=== PATIENT | male | born 1945 | race African-American/Black ===

== ENCOUNTER 2022-06-10 17:29 | Emergency (ER) | payer OTHER ==
[~2022-06-10] VITALS: Ht 175.3 cm; Wt 117.9 kg
--- NOTE | 2022-06-10 17:34 | NUR ---
ER at bedside examining patient.
[2022-06-10 17:37] VITALS: BP_SYST 123
[2022-06-10] MEDS ORDERED: MECLIZINE HCL 25 MG TABLET (ANITVERT) PO ONE (17:45)
[2022-06-10] MEDS ORDERED: METOCLOPRAMIDE HCL 10 MG/2 ML VIAL IVP ONE (17:45)
[2022-06-10 18:29] LABS: ANION GAP 3 (5-15); CALCIUM 8.2 mg/dL (8.4-11.0); CHLORIDE 94 mmol/L (98-107); CREATININE 1.08 mg/dL (0.55-1.30); GLUCOSE 58 mg/dL (70-99); UREA NITROGEN, BLOOD 12 mg/dL (8-21)
[2022-06-10 18:37] LABS: ALANINE AMINOTRANSFERASE 18 U/L (12-78); ALBUMIN 2.6 g/dL (3.4-4.8); ASPARTATE AMINOTRANSFERASE 34 U/L (10-37); TOTAL BILIRUBIN 0.3 mg/dL (0.0-1.0)
[2022-06-10 18:43] LABS: HEMATOCRIT 31.7 % (36-54); HEMOGLOBIN 10.7 g/dL (14.0-18.0); MEAN CORPUSCULAR HEMOGLOBIN 28 pg (27-31); MEAN CORPUSCULAR HGB CONC 34 % (32-36); MEAN CORPUSCULAR VOLUME 81 fL (79.0-98.0); PLATELET COUNT (AUTO) 225 K/uL (130-430); RED BLOOD CELL COUNT(AUTO) 3.91 MIL/uL (4.2-6.2); RED CELL DISTRIBUTION WIDTH 19.3 % (9.0-15.0); WHITE BLOOD COUNT (AUTO) 5.2 K/uL (4.8-10.8)
[2022-06-10 19:09] LABS: BAND % (MANUAL) 0 % (0-6); BASOPHILS % (MANUAL) 0 % (0-2); EOSINOPHILS % (MANUAL) 34 % (0-7); LYMPHOCYTES % (MANUAL) 29 % (20-46); MONOCYTES % (MANUAL) 6 % (0-11)
[2022-06-10] MEDS ORDERED: DEXTROSE 50% JECT 50 ML DISP.SYRIN IVP ONE (20:30)
[2022-06-11 01:06] VITALS: BP_SYST 108
--- NOTE | 2022-06-11 01:16 | NUR ---
called to give report to rachel Mauricio, pt will be going to room 4034 and not [id number] per oswaldo. [facility] here waiting for [facility] to transfer pt. pt a&ox4 bedbound. iv access left in place. no distress noted. report given to emt transporter.
== END 2022-06-11 02:08 | disposition short-term general hospital (02) ==
LOC: SED 17:29
DX: E16.2 Hypoglycemia, unspecified (principal); R42 Dizziness and giddiness; R11.2 Nausea with vomiting, unspecified; R51.9 Headache, unspecified; Z79.899 Other long term (current) drug therapy; Z20.822 Contact with and (suspected) exposure to COVID-19
CPT/HCPCS: 99285; 96374; 70450; 71045; 96375; 87426; 85027; 80053; 82962; 85007; 84484; 36415; 93005; 76376; J8597; J2765

== ENCOUNTER 2022-08-02 14:14 | Inpatient (IN) | payer OTHER ==
[~2022-08-02] VITALS: Ht 172.7 cm; Wt 127.2 kg
--- NOTE | 2022-08-02 00:07 | NUR ---
ADMISSION: The patient, QUEENIE GONZALEZ, 77 y/o, M admitted by JUNAID CHAVEZ MD, was given written information regarding hospital policies, unit procedures and contact persons. Valuables were checked and DOCUMENTED. Addendum: 08/03/22 at 0700 by [facility], RIANNA BLANCA NOTE INTENDED FOR DIFFERENT DATE
[2022-08-02 14:25] VITALS: BP_SYST 110
--- NOTE | 2022-08-02 14:25 | NUR ---
BROUGHT IN BY [facility] AND PLACED IN HALLWAY, AWAITING ER BED AVAILABILITY
--- NOTE | 2022-08-02 14:26 | NUR ---
PT IS A RESIDENT OF [facility]
--- NOTE | 2022-08-02 15:25 | NUR ---
Patient to ER bed 04 to gown for evaluation. Side rails up.
--- NOTE | 2022-08-02 15:59 | NUR ---
Pt brought by ambulance,A&Ox4, pt presents to ER with N/V, denies abdominal pain, skin pink and warm, cap refill <3, VSS, will cont to monitor
[2022-08-02] MEDS ORDERED: ONDANSETRON 4 MG ODT TAB PO ONE (16:00)
[2022-08-02 16:44] LABS: ANION GAP 6 (5-15); CALCIUM 7.6 mg/dL (8.4-11.0); CHLORIDE 107 mmol/L (98-107); CREATININE 2.46 mg/dL (0.55-1.30); GLUCOSE 86 mg/dL (70-99); UREA NITROGEN, BLOOD 39 mg/dL (8-21)
[2022-08-02 16:48] LABS: BASOPHILS % (AUTO) 0.2 % (0.0-2.0); EOSINOPHILS % (AUTO) 0.1 % (0.0-4.0); HEMATOCRIT 38.4 % (36-54); HEMOGLOBIN 12.3 g/dL (14.0-18.0); LYMPHOCYTES # (AUTO) 2.1 K/uL (1.0-5.5); LYMPHOCYTES % (AUTO) 12.7 % (20.5-51.5); MEAN CORPUSCULAR HEMOGLOBIN 27 pg (27-31); MEAN CORPUSCULAR HGB CONC 32 % (32-36); MEAN CORPUSCULAR VOLUME 84 fL (79.0-98.0); MONOCYTES # (AUTO) 1.7 K/uL (0.0-1.0); MONOCYTES % (AUTO) 10.4 % (1.7-9.3); NEUTROPHILS # (AUTO) 12.4 K/uL (1.8-7.7); NEUTROPHILS % (AUTO) 76.6 % (40.0-70.0); PLATELET COUNT (AUTO) 286 K/uL (130-430); RED BLOOD CELL COUNT(AUTO) 4.57 MIL/uL (4.2-6.2); RED CELL DISTRIBUTION WIDTH 16.6 % (9.0-15.0); WHITE BLOOD COUNT (AUTO) 16.2 K/uL (4.8-10.8)
[2022-08-02 16:49] LABS: ALANINE AMINOTRANSFERASE 486 U/L (12-78); ALBUMIN 2.2 g/dL (3.4-4.8); AMYLASE 72 U/L (0-100); ASPARTATE AMINOTRANSFERASE 565 U/L (10-37); LIPASE 78 U/L (73-393); TOTAL BILIRUBIN 1.2 mg/dL (0.0-1.0)
[2022-08-02 17:11] LABS: ACETONE, SERUM NEGATIVE (NEGATIVE)
[2022-08-02 17:24] LABS: C-REACTIVE PROTEIN QUANT 28.6 mg/dL (0-0.5)
--- NOTE | 2022-08-02 17:50 | NUR ---
URINE SPECIMEN COLLECTED FROM CLEAN CATCH. SENT TO LAB.
[2022-08-02] MEDS ORDERED: ONDANSETRON HCL 4 MG/2 ML VIAL IVP ONE (18:30)
[2022-08-02] MEDS ORDERED: PIPERACILLIN/TAZO 3.375 GM in NS 50 ML IV ONE (18:30)
[2022-08-02] MEDS ORDERED: NACL 0.9% 2,000 ML IV ONE (18:30)
[2022-08-02 18:33] LABS: BILIRUBIN,URINE NEGATIVE (NEGATIVE); BLOOD, URINE 3+ (NEGATIVE); CLARITY/URINE TURBID (CLEAR); COLOR,URINE YELLOW (YELLOW); GLUCOSE,URINE NEGATIVE (NEGATIVE); KETONES,URINE NEGATIVE (NEGATIVE); LEUKOCYTE ESTERASE ,URINE 3+ (NEGATIVE); NITRITE, URINE NEGATIVE (NEGATIVE); PROTEIN URINE 2+ (NEGATIVE)
--- NOTE | 2022-08-02 18:40 | NUR ---
COVID SWAB OBTAINED AND SENT TO LAB
[2022-08-02] MEDS ORDERED: PIPERACILLIN/TAZOBACTAM 3.375 GM/VIAL (ZOSYN) IV ONE ×2 (18:58→19:04)
[2022-08-02 19:11] LABS: BACTERIA,URINE MANY /HPF (None Seen); MUCUS,URINE None Seen /LPF (None Seen); RBC,URINE 20-50 /HPF (0-3); WBC,URINE >100 /HPF (0-3)
--- NOTE | 2022-08-02 19:45 | NUR ---
REC REPORT FOR DAYSHIFT RN. PT AWAKE AND ALERT IN BED, DENIES DISCOMFORT AT THIS TIME. PT VSS, SAFETY PRECAUTIONS IN PLACE AND CONNECTED TO MONITOR. PRESENT AT BEDSIDE.
[2022-08-02] MEDS ORDERED: NACL 0.9% 1,000 ML IV ONE (21:45)
--- NOTE | 2022-08-02 22:53 | NUR ---
Admit bed requested Patient will be admitted to care of Dr.PALIWAL Leslie Admitted to TELE unit. Diagnosis SEPSIS,UTI Inpatient (Yes or No) YES Observation (Yes or No) NO Orientation concerns or request close to nursing station (Yes or No) NO Covid Status NEGATIVE On vent or bipap NO Isolation requirements NO Needs a sitter NO From Home (Yes or if No enter name of facility) [facility] Requires Dialysis (Yes or No) NO Med Rec Completed (Yes of No) PENDING
--- NOTE | 2022-08-02 23:34 | NUR ---
PT UNABLE TO RECALL MEDICATIONS TO COMPLETE MED REC. REQUESTED HECTOR FOR SNAPSHOT.
--- NOTE | 2022-08-03 00:07 | NUR ---
Patient will be admitted to care of DR. CHAVEZ. Admitted to TELEMETRY unit. Will go to room 119B. Belongings list completed. Complete and up to date summary report printed. SBAR report given to BRAVO BLANCA at bedside with opportunity for questions.
--- NOTE | 2022-08-03 00:07 | NUR ---
ADMISSION: The patient, QUEENIE GONZALEZ, 77 y/o, M admitted by JUNAID CHAVEZ MD, was given written information regarding hospital policies, unit procedures and contact persons. Valuables were checked and DOCUMENTED.
[2022-08-03 00:21] VITALS: BP_SYST 112
--- NOTE | 2022-08-03 01:05 | NUR ---
Rounds made.Pt is sleeping comfortably.Pt has even and unlabored breathing noted. Addendum: 08/04/22 at 0219 by [facility] Alex José RN RN this charting is error.wrong time
--- NOTE | 2022-08-03 01:30 | NUR ---
INITIAL NOTE AT INITIAL ASSESSMENT, PATIENT IS RESTING IN BED, STABLE, NO SIGNS OF RESPIRATORY DISTRESS. PLAN OF CARE FOR THE EVENING IS COMMUNICATED WITH THE PATIENT. PATIENT DEMONSTRATES CORRECT USAGE OF CALL LIGHT AT THIS TIME. BED IS LOCKED, ALARMED, AND AT THE LOWEST LEVEL. FALL, SAFETY, AND ASPIRATION PRECAUTIONS WILL BE TAKEN THROUGHOUT THE SHIFT. PATIENT VERBALIZES NO PAIN OR NAUSEA AT THIS TIME.
[2022-08-03] MEDS: D5/0.45 NS 1,000 ML IV SCH ×3 (03:10→18:30)
--- NOTE | 2022-08-03 04:30 | NUR ---
HYGIENE NOTE HYGIENE CARE PROVIDED AT THIS TIME, PATIENT TOLERATED WELL. HE IS REPOSITIONED FOR COMFORT.
--- NOTE | 2022-08-03 06:50 | NUR ---
CLOSING NOTE PATIENT SLEPT WELL THROUGHOUT THE NIGHT, HE VERBALIZES HE IS NO LONGER EXPERIENCING NAUSEA OR VOMITING AT THIS TIME. CALL LIGHT PLACED WITHIN REACH. BED IS LOCKED, AND AT THE LOWEST LEVEL. FALL, SAFETY, RESPIRATORY, AND ASPIRATION PRECAUTIONS HAVE BEEN IN PLACE THROUGHOUT THE SHIFT. WILL CONTINUE TO MONITOR UNTIL REPORT IS GIVEN AT BEDSIDE TO AM NURSE.
[2022-08-03 07:44] VITALS: BP_SYST 96
--- NOTE | 2022-08-03 07:53 | NUR ---
RN, Rhona asked me to inquire from the board and care the current med list. Pt's gave the complete name and number of the facility -- [facility] , TEL NO [phone]. Spoke to Isela and will fax me pt's current med list.nb
[2022-08-03] MEDS ORDERED: FURO-150 PO (08:29)
[2022-08-03] MEDS ORDERED: AMIO200T66 PO (08:29)
[2022-08-03] MEDS ORDERED: ALLO100T PO (08:29)
[2022-08-03] MEDS ORDERED: LIP20 PO (08:29)
[2022-08-03] MEDS ORDERED: DILT180C67 PO (08:29)
[2022-08-03] MEDS ORDERED: POTA-197 PO (08:44)
[2022-08-03] MEDS ORDERED: DABI150C PO (08:44)
[2022-08-03] MEDS ORDERED: HYDROcodone/ACETAMIN 5-325 MG TAB (NORCO/ VICODIN) PO PRN (11:00)
[2022-08-03] MEDS ORDERED: NALOXONE HCL 0.4 MG/ML AMP (NARCAN) IVP PRN ×2 (11:00)
[2022-08-03] MEDS ORDERED: HYDROcodone/ACETAMIN 10-325 MG TAB PO PRN (11:00)
[2022-08-03] MEDS ORDERED: ACETAMINOPHEN 325 MG TABLET PO PRN (11:00)
[2022-08-03] MEDS ORDERED: ONDANSETRON HCL 4 MG/2 ML VIAL IVP PRN (11:00)
--- NOTE | 2022-08-03 11:00 | NUR ---
CONSULTATION PAGED/CALLED Reason for Consultation: [] MIKEL Person Who was Notified: [] KATI Consulting Physician: [] DR SAMUEL ITALIAN TUTOR FOR DR ACEVEDO Box Spring Maker Specialty: [] NEPHRO Ordering Physician: [] DR Terry CHAVEZ
[2022-08-03] MEDS ORDERED: DILT120C89 PO (11:02)
--- NOTE | 2022-08-03 11:02 | NUR ---
CONSULTATION PAGED/CALLED Reason for Consultation: [] TRANSAMINITIS Person Who was Notified: [] EMA Consulting Physician: [] DR MARES Supervisor Die Casting Specialty: [] GI Ordering Physician: [] DR Terry CHAVEZ
--- NOTE | 2022-08-03 11:03 | NUR ---
CONSULTATION PAGED/CALLED Reason for Consultation: [] LEUKOCYTOSIS Person Who was Notified: [] SOPHIE Consulting Physician: [] DR OSVALDO CAM Male Model Specialty: [] ID Ordering Physician: [] DR CHAVEZ
[2022-08-03] MEDS ORDERED: DILTIAZEM HCL 120 MG CAP.SR.24H PO SCH (11:15)
[2022-08-03] MEDS ORDERED: ALLOPURINOL 100 MG TABLET (ZYLOPRIM) PO ONE (11:15)
[2022-08-03] MEDS ORDERED: DILTIAZEM HCL 120 MG CAP.SR.24H PO ONE (11:15)
[2022-08-03] MEDS ORDERED: AMIODARONE HCL 200 MG TABLET PO ONE (11:15)
[2022-08-03] MEDS ORDERED: NACL 0.9% 1,000 ML IV ONE (11:30)
[2022-08-03 11:55] VITALS: BP_SYST 89
[2022-08-03 12:03] VITALS: BP_SYST 92
--- NOTE | 2022-08-03 12:30 | NUR ---
Report received from Star Marinelli. Pt is a/ox4, denies any pain, Afib controlled on the monitor, no sign of any distress. s/p 1L bolus NS given by Star MARINELLI. Pt bp stable now. Pt is sitting up and eating lunch. Assuming care for pt.
--- NOTE | 2022-08-03 12:36 | NUR ---
TRANSFER OF CARE: PT ENDORSED TO RIANNA ARMANDO.
[2022-08-03] MEDS ORDERED: NORMAL SALINE 5 ML DISP.SYRIN IVF SCH (14:00)
[2022-08-03] MEDS: PIPERACILLIN/TAZO 2.25G/DEX-IS 50 ML IV SCH ×2 (14:32→18:30)
[2022-08-03] MEDS: NORMAL SALINE 5 ML DISP.SYRIN IVF SCH ×2 (14:33→22:04)
[2022-08-03 15:54] VITALS: BP_SYST 93
--- NOTE | 2022-08-03 19:00 | NUR ---
Received pt in bed.AOX4.On RA.Afib on monitor.Not in respiratory distress noted.No complaint of pain noted.IV L hand g 20 with ongoing IVF of D5 1/2NS at 100 ml/hr.Instructed to use the call light for assistance.Bed in lowest position.Bedside table and call light are within reach.
[2022-08-03 20:00] VITALS: BP_SYST 92
[2022-08-03] MEDS ORDERED: DABIGATRAN ETEXILATE MESYLATE 75 MG CAPSULE PO SCH ×2 (21:00)
[2022-08-03] MEDS: FUROSEMIDE 20 MG TABLET PO SCH (21:00)
--- NOTE | 2022-08-03 21:00 | NUR ---
Scheduled medications given as ordered.
[2022-08-03] MEDS: DABIGATRAN ETEXILATE MESYLATE 75 MG CAPSULE PO SCH (22:01)
[2022-08-03] MEDS: POTASSIUM CHLORIDE 10 MEQ TAB.PRT.SR PO SCH (22:02)
[2022-08-03] MEDS: ATORVASTATIN 20 MG TABLET PO SCH (22:03)
[2022-08-04] VITALS: BP_SYST 107
[2022-08-04] MEDS: PIPERACILLIN/TAZO 2.25G/DEX-IS 50 ML IV SCH ×5 (00:03→22:13)
--- NOTE | 2022-08-04 01:30 | NUR ---
Rounds made.Pt is sleeping comfortably.Pt has even and unlabored breathing noted.
[2022-08-04] MEDS: D5/0.45 NS 1,000 ML IV SCH ×2 (04:23→15:40)
[2022-08-04] MEDS: NORMAL SALINE 5 ML DISP.SYRIN IVF SCH ×3 (04:23→22:04)
--- NOTE | 2022-08-04 08:00 | NUR ---
Initial Notes Patient is Aox4, eating breakfast. No ss of distress noted. Breathing is even and non labored, on room air. Patient denies pain. Vital signs obtained, as documented. No SOB noted. IV patent. IVF running. Bed is locked, alarm on, and at lowest position. Call light within reach.
[2022-08-04 08:14] LABS: BASOPHILS % (AUTO) 0.5 % (0.0-2.0); EOSINOPHILS # (AUTO) 0.4 K/uL (0.0-0.4); EOSINOPHILS % (AUTO) 3.8 % (0.0-4.0); HEMATOCRIT 30.9 % (36-54); HEMOGLOBIN 10.2 g/dL (14.0-18.0); LYMPHOCYTES # (AUTO) 1.4 K/uL (1.0-5.5); LYMPHOCYTES % (AUTO) 14.7 % (20.5-51.5); MEAN CORPUSCULAR HEMOGLOBIN 28 pg (27-31); MEAN CORPUSCULAR HGB CONC 33 % (32-36); MEAN CORPUSCULAR VOLUME 84 fL (79.0-98.0); MONOCYTES # (AUTO) 0.8 K/uL (0.0-1.0); MONOCYTES % (AUTO) 8.7 % (1.7-9.3); NEUTROPHILS # (AUTO) 7.1 K/uL (1.8-7.7); NEUTROPHILS % (AUTO) 72.3 % (40.0-70.0); PLATELET COUNT (AUTO) 236 K/uL (130-430); RED BLOOD CELL COUNT(AUTO) 3.69 MIL/uL (4.2-6.2); RED CELL DISTRIBUTION WIDTH 17.4 % (9.0-15.0); WHITE BLOOD COUNT (AUTO) 9.8 K/uL (4.8-10.8)
[2022-08-04] MEDS: DILTIAZEM HCL 120 MG CAP.SR.24H PO SCH (09:00)
[2022-08-04] MEDS ORDERED: DILTIAZEM HCL 180 MG CAP.SR.24H PO SCH (09:00)
[2022-08-04] MEDS: FUROSEMIDE 20 MG TABLET PO SCH ×2 (09:00→22:04)
[2022-08-04] MEDS: AMIODARONE HCL 200 MG TABLET PO SCH (09:00)
[2022-08-04] MEDS ORDERED: DILTIAZEM HCL 120 MG CAP.SR.24H PO SCH (09:00)
[2022-08-04 09:13] LABS: ALANINE AMINOTRANSFERASE 294 U/L (12-78); ALBUMIN 1.6 g/dL (3.4-4.8); ANION GAP 6 (5-15); ASPARTATE AMINOTRANSFERASE 267 U/L (10-37); C-REACTIVE PROTEIN QUANT 19.9 mg/dL (0-0.5); CALCIUM 7.2 mg/dL (8.4-11.0); CHLORIDE 110 mmol/L (98-107); CREATININE 1.88 mg/dL (0.55-1.30); GLUCOSE 100 mg/dL (70-99); PHOSPHORUS 2.5 mg/dL (2.7-4.5); THYROID STIMULATING HORMONE 0.45 uIu/mL (0.36-3.74); TOTAL BILIRUBIN 1.4 mg/dL (0.0-1.0); UREA NITROGEN, BLOOD 46 mg/dL (8-21)
[2022-08-04] MEDS: POTASSIUM CHLORIDE 10 MEQ TAB.PRT.SR PO SCH ×2 (10:42→21:57)
[2022-08-04] MEDS: ALLOPURINOL 100 MG TABLET (ZYLOPRIM) PO SCH (10:43)
--- NOTE | 2022-08-04 10:57 | NUR ---
CONSULTATION PAGED REASON FOR CONSULTATION:DIZZINESS WAS CONSULT CALLED?Y PERSON WHO WAS NOTIFIED:TEXT MESSAGED NITHIN STEVENSON CONSULTING PHYSICIAN:NITHIN STEVENSON TOUR ESCORT SPECIALTY:NEURO TOUR ESCORT PHONE NUMBER:[phone] REQUESTING PHYSICIAN:JUNAID LENNON
[2022-08-04 11:04] LABS: ERYTHROCYTE SEDIMENTATION RATE 14 MM/HR (0-15)
[2022-08-04] MEDS: DABIGATRAN ETEXILATE MESYLATE 75 MG CAPSULE PO SCH ×2 (11:14→21:58)
[2022-08-04 11:36] VITALS: BP_SYST 111
[2022-08-04 16:30] VITALS: BP_SYST 121
--- NOTE | 2022-08-04 19:15 | NUR ---
Dietitian Recommendations * Ordered: GI soft, cardiac diet + Ensure Enlive BID (ONS provides 700kcals, 40g PRO) * Verify patient weight via bed scale as soon as feasible Please refer to nutrition assessment for details, thanks! Paola Huang MPH, RDN
[2022-08-04 20:00] VITALS: BP_SYST 130
--- NOTE | 2022-08-04 20:23 | NUR ---
Closing Notes Patient is eating dinner. No ss of distress noted. Breathing is even and nonlabored, on room air. Denies apin. No facial grimace noted. IV patent. IVF running. Patient stable at this time. All needs met. Bed locked, alarm on, and at lowest position. Call light within reach. Endorsed care to Adry BLANCA.
[2022-08-04] MEDS: ATORVASTATIN 20 MG TABLET PO SCH (22:04)
[2022-08-05] VITALS (7 sets, daily range): BP systolic 104–123
[2022-08-05] MEDS: D5/0.45 NS 1,000 ML IV SCH ×3 (01:01→20:45)
[2022-08-05] MEDS: PIPERACILLIN/TAZO 2.25G/DEX-IS 50 ML IV SCH ×3 (05:33→18:00)
[2022-08-05] MEDS: NORMAL SALINE 5 ML DISP.SYRIN IVF SCH ×3 (05:34→21:55)
--- NOTE | 2022-08-05 08:00 | NUR ---
Initial Notes Patient is Aox4. No ss of distress noted. breathing is even and nonlabored, on room air. No SOB noted. patient denies pain. IV patent. Vital signs obtained, as documented. Breakfast on bedside table. Bed locked, alarm on, and at lowest position. Call light within reach.
[2022-08-05 08:25] LABS: BASOPHILS % (AUTO) 0.4 % (0.0-2.0); EOSINOPHILS # (AUTO) 0.5 K/uL (0.0-0.4); EOSINOPHILS % (AUTO) 7.3 % (0.0-4.0); LYMPHOCYTES # (AUTO) 1.2 K/uL (1.0-5.5); LYMPHOCYTES % (AUTO) 16.1 % (20.5-51.5); MEAN CORPUSCULAR HEMOGLOBIN 28 pg (27-31); MEAN CORPUSCULAR HGB CONC 33 % (32-36); MEAN CORPUSCULAR VOLUME 82 fL (79.0-98.0); MONOCYTES # (AUTO) 0.9 K/uL (0.0-1.0); MONOCYTES % (AUTO) 11.8 % (1.7-9.3); NEUTROPHILS # (AUTO) 4.7 K/uL (1.8-7.7); NEUTROPHILS % (AUTO) 64.4 % (40.0-70.0); PLATELET COUNT (AUTO) 251 K/uL (130-430); RED CELL DISTRIBUTION WIDTH 16.6 % (9.0-15.0); WHITE BLOOD COUNT (AUTO) 7.3 K/uL (4.8-10.8)
[2022-08-05 08:30] LABS: ANION GAP 7 (5-15); C-REACTIVE PROTEIN QUANT 12.1 mg/dL (0-0.5); CALCIUM 7.1 mg/dL (8.4-11.0); CHLORIDE 110 mmol/L (98-107); CREATININE 1.65 mg/dL (0.55-1.30); GLUCOSE 91 mg/dL (70-99); PHOSPHORUS 2.4 mg/dL (2.7-4.5); UREA NITROGEN, BLOOD 35 mg/dL (8-21)
[2022-08-05] MEDS: FUROSEMIDE 20 MG TABLET PO SCH ×3 (09:00→21:54)
[2022-08-05] MEDS ORDERED: PANTOPRAZOLE SODIUM 40 MG/VIAL (PROTONIX) IVP ONE (09:15)
[2022-08-05] MEDS ORDERED: GASTROGRAFIN 120 ML ONE (09:20)
--- NOTE | 2022-08-05 10:45 | NUR ---
Notes Patient has been cleaned and repositioned, linens changed. No distress noted. patient denies severe pain. Bed locked, alarm on, and at lowest position. Call light within reach.
[2022-08-05] MEDS: ALLOPURINOL 100 MG TABLET (ZYLOPRIM) PO SCH (10:59)
[2022-08-05] MEDS: POTASSIUM CHLORIDE 10 MEQ TAB.PRT.SR PO SCH ×2 (10:59→21:49)
[2022-08-05] MEDS: DABIGATRAN ETEXILATE MESYLATE 75 MG CAPSULE PO SCH ×2 (11:06→21:53)
[2022-08-05 11:35] LABS: ERYTHROCYTE SEDIMENTATION RATE 16 MM/HR (0-15)
--- NOTE | 2022-08-05 12:01 | NUR ---
Notes Patient's Iv infiltrated. Attempted to insert IV twice, unsuccessful. RR tried, unsuccessful. Patient denies pain. No distress noted. Patient left unit to CT.
--- NOTE | 2022-08-05 12:28 | NUR ---
Notes patient back from CT.
[2022-08-05] MEDS: DILTIAZEM HCL 120 MG CAP.SR.24H PO SCH (13:51)
[2022-08-05] MEDS: AMIODARONE HCL 200 MG TABLET PO SCH (13:52)
--- NOTE | 2022-08-05 14:37 | NUR ---
NO IV ACCESS MULTIPLE ATTEMPTS TO INSERT IV BY MULTIPLE NURSES, UNSUCCESSFUL. PAGED DR. CHAVEZ.
--- NOTE | 2022-08-05 14:40 | NUR ---
NO IV Access Scheduled antibiotic at 12 noon not given, no IV access multiple attempt, MD aware pending midline placement.
--- NOTE | 2022-08-05 15:43 | NUR ---
PAGED AND SPOKE TO DR. CHAVEZ. ORDERS RECEIVED FOR MIDLINE.
--- NOTE | 2022-08-05 19:33 | NUR ---
CLOSING NOTES DR. CAM CAME AND SAW PATIENT. NEW ORDERS, PATIENT NOW ON CONTACT ISOLATION. PATIENT IS RESTING, AWAKE. NO SS OF DISTRESS NOTED. BREATHING IS EVEN AND NONLABORED, ON ROOM AIR. DENIES PAIN. NO SOB NOTED. NO IV ACCESS. MIDLINE CONSENTS SIGNED AND IN CHART. ENDORSED NOC SHIFT TO FOLLOW UP WITH IV/ MIDLINE. ALL NEEDS MET. PATIENT IS STABLE. BED LOCKED, ALARM ON, AND AT LOWEST POSITION. CALL LIGHT WITHIN REACH. ENDORSED CONTINUE OF CARE TO RIANNA CONCEPCION.
[2022-08-05] MEDS: ATORVASTATIN 20 MG TABLET PO SCH (21:50)
[2022-08-06] VITALS (8 sets, daily range): BP systolic 111–134
[2022-08-06] MEDS: PIPERACILLIN/TAZO 2.25G/DEX-IS 50 ML IV SCH ×5 (05:35→17:27)
[2022-08-06] MEDS: NORMAL SALINE 5 ML DISP.SYRIN IVF SCH ×3 (05:36→21:19)
[2022-08-06] MEDS: D5/0.45 NS 1,000 ML IV SCH ×3 (06:23→23:45)
[2022-08-06 07:09] LABS: BASOPHILS % (AUTO) 0.2 % (0.0-2.0); EOSINOPHILS # (AUTO) 0.2 K/uL (0.0-0.4); EOSINOPHILS % (AUTO) 3.1 % (0.0-4.0); HEMATOCRIT 34.9 % (36-54); HEMOGLOBIN 11.1 g/dL (14.0-18.0); LYMPHOCYTES # (AUTO) 0.9 K/uL (1.0-5.5); LYMPHOCYTES % (AUTO) 11.3 % (20.5-51.5); MEAN CORPUSCULAR HEMOGLOBIN 27 pg (27-31); MEAN CORPUSCULAR HGB CONC 32 % (32-36); MEAN CORPUSCULAR VOLUME 84 fL (79.0-98.0); NEUTROPHILS # (AUTO) 5.5 K/uL (1.8-7.7); NEUTROPHILS % (AUTO) 72.4 % (40.0-70.0); PLATELET COUNT (AUTO) 283 K/uL (130-430); RED BLOOD CELL COUNT(AUTO) 4.16 MIL/uL (4.2-6.2); RED CELL DISTRIBUTION WIDTH 17.6 % (9.0-15.0); WHITE BLOOD COUNT (AUTO) 7.7 K/uL (4.8-10.8)
[2022-08-06 07:44] LABS: ANION GAP 8 (5-15); C-REACTIVE PROTEIN QUANT 14.1 mg/dL (0-0.5); CALCIUM 7.2 mg/dL (8.4-11.0); CHLORIDE 109 mmol/L (98-107); CREATININE 1.91 mg/dL (0.55-1.30); GLUCOSE 61 mg/dL (70-99); PHOSPHORUS 2.4 mg/dL (2.7-4.5); TOTAL BILIRUBIN 2.1 mg/dL (0.0-1.0); UREA NITROGEN, BLOOD 31 mg/dL (8-21)
[2022-08-06 08:26] LABS: ALANINE AMINOTRANSFERASE 321 U/L (12-78); ASPARTATE AMINOTRANSFERASE 438 U/L (10-37)
[2022-08-06] MEDS: PANTOPRAZOLE SODIUM 40 MG/VIAL (PROTONIX) IVP SCH (09:00)
[2022-08-06 09:04] LABS: ERYTHROCYTE SEDIMENTATION RATE 27 MM/HR (0-15)
[2022-08-06] MEDS: FUROSEMIDE 20 MG TABLET PO SCH ×2 (10:00→21:14)
[2022-08-06] MEDS: POTASSIUM CHLORIDE 10 MEQ TAB.PRT.SR PO SCH ×2 (10:00→21:14)
[2022-08-06] MEDS: DILTIAZEM HCL 120 MG CAP.SR.24H PO SCH (10:01)
[2022-08-06] MEDS: ALLOPURINOL 100 MG TABLET (ZYLOPRIM) PO SCH (10:02)
[2022-08-06] MEDS: DABIGATRAN ETEXILATE MESYLATE 75 MG CAPSULE PO SCH ×2 (10:04→21:19)
[2022-08-06] MEDS ORDERED: NA PHOS 15 MM in NS 250 ML IV ONE (15:00)
--- NOTE | 2022-08-06 19:15 | NUR ---
change of shift.pt.presents isolation status contact;e.coli/esbl urine.pt.presents lower extremity rom compromised. paraplegia.pt.presents mid-line location lt.bicept.intact.iv fluids infusing.pt.presents incontinence blabber/bowel.call light/telephone w/in access of the pt.
--- NOTE | 2022-08-06 20:00 | NUR ---
pt.assessed.v/s assessed values wnl.no c/o pain,nausea.pt.assessed for cleanliness.pt.repositioned.mid-line intact patent.pt.apprised snacks/beverages are available w/in the shift.no requests posited@this hour.call light/telephone placed w/in access of the pt.
--- NOTE | 2022-08-06 21:00 | NUR ---
2100p medications administered.pt.capable to ingest the po medications w/out difficulty.no c/o pain,nausea.no requests posited @this hour.
--- NOTE | 2022-08-06 21:27 | NUR ---
Paged Dr. Lees Jose Guadalupe
--- NOTE | 2022-08-06 21:31 | NUR ---
MID LINE PLACED TODAY ABLE TO RESUME IV ANTIBIOTIC THERAPY AND IVF THERAPY. REPLACING K AND PHOS WITH RIDER. APPETITE FAIR. CAME TO VISIT. PLAN TO CONTINUE IV THERAPY IV FLUID'S FOLLOW LAB.NO COMPLAINT'S REQUEST THROUGH OUT SHIFT. ASSESSMENT UNCHANGED FROM PREVIOUS SHITS VSS.
--- NOTE | 2022-08-06 22:00 | NUR ---
pt.assessed.pt.had presented cough.;a paged/returned the page. apprised of the pt's status. ordered robitussin;10ml q4hrs/prn.cough.i have administered the initial dose.of robitussin.i paged r/t to administer inh treatment.no c/o pain, nausea.pt.assessed for cleanliness.pt.repositioned.call light/telephone placed w/in access of the pt.
[2022-08-06] MEDS: IPRATROPIUM BROM 0.5 MG/2.5 ML VIAL.NEB (ATROVENT) INH PRN (22:16)
[2022-08-06] MEDS: ALBUTEROL SULFATE 0.083% 2.5 MG/3 ML VIAL.NEB INH PRN (22:16)
[2022-08-06] MEDS: guaiFENesin 200 MG/CODEINE 20 MG/ 10 ML UDC PO PRN (22:35)
--- NOTE | 2022-08-07 | NUR ---
pt.assessed.v/s assessed values wnl.o2-sat%=96%.mid-line intact.no c/o pain,nausea.no requests posited@this hour. pt.assessed for cleanliness.pt.repositioned.call light/telephone placed w/in access of the pt.
[2022-08-07] MEDS: PIPERACILLIN/TAZO 2.25G/DEX-IS 50 ML IV SCH ×4 (00:06→18:44)
[2022-08-07 01:01] VITALS: BP_SYST 102
--- NOTE | 2022-08-07 02:00 | NUR ---
pt.assessed.pt.quiescent.o2-sat%=96%.per flacc pain mgx pt.absent facial grimaces/body posturing.pt.assessed for cleanliness. pt.repositioned.call light/telephone palce win access of the pt.
[2022-08-07] MEDS: guaiFENesin 200 MG/CODEINE 20 MG/ 10 ML UDC PO PRN (02:59)
--- NOTE | 2022-08-07 03:00 | NUR ---
pt.requested robitussin.i have administered robitussin:10ml.no additional requests posited@this hour.
--- NOTE | 2022-08-07 04:00 | NUR ---
pt.assessed.pt.quiescent.mid-line intact.per flacc pain mgx pt.absent facial grimaces/body posturing. pt.assessed for cleanliness.pt.repositioned.call light/telephone placed w/in access of the pt.
[2022-08-07] MEDS: ALBUTEROL SULFATE 0.083% 2.5 MG/3 ML VIAL.NEB INH PRN (04:26)
[2022-08-07] MEDS: IPRATROPIUM BROM 0.5 MG/2.5 ML VIAL.NEB (ATROVENT) INH PRN (04:27)
[2022-08-07] MEDS: NORMAL SALINE 5 ML DISP.SYRIN IVF SCH ×3 (05:35→21:31)
[2022-08-07 06:02] LABS: BASOPHILS % (AUTO) 0.4 % (0.0-2.0); EOSINOPHILS # (AUTO) 0.3 K/uL (0.0-0.4); EOSINOPHILS % (AUTO) 3.9 % (0.0-4.0); HEMATOCRIT 30.6 % (36-54); HEMOGLOBIN 10.2 g/dL (14.0-18.0); MEAN CORPUSCULAR HEMOGLOBIN 27 pg (27-31); MEAN CORPUSCULAR HGB CONC 33 % (32-36); MEAN CORPUSCULAR VOLUME 81 fL (79.0-98.0); MONOCYTES # (AUTO) 0.9 K/uL (0.0-1.0); MONOCYTES % (AUTO) 12.4 % (1.7-9.3); NEUTROPHILS # (AUTO) 4.7 K/uL (1.8-7.7); NEUTROPHILS % (AUTO) 68.3 % (40.0-70.0); PLATELET COUNT (AUTO) 260 K/uL (130-430); RED BLOOD CELL COUNT(AUTO) 3.78 MIL/uL (4.2-6.2); WHITE BLOOD COUNT (AUTO) 6.9 K/uL (4.8-10.8)
[2022-08-07 06:21] LABS: INR 1.7 (0.80-1.20); PROTHROMBIN TIME 16.9 SECS (9.5-12.5)
--- NOTE | 2022-08-07 06:29 | NUR ---
pt.assessed.no c/o pain,nausea.pt.cleaned/repositioned.o2-sat%=96%.pt.has received the administration robitussin/inh treatment per r/t. pt.stated breathing capacity;function improved.wound care order placed for wcn;kimberlee r/e;lower extremities.mid-line intact iv fluids infusing no requests posited@this hour.call light/telephone placed w/in access of the pt.
[2022-08-07 06:58] LABS: ALANINE AMINOTRANSFERASE 351 U/L (12-78); ALBUMIN 1.7 g/dL (3.4-4.8); ANION GAP 9 (5-15); ASPARTATE AMINOTRANSFERASE 509 U/L (10-37); C-REACTIVE PROTEIN QUANT 18.2 mg/dL (0-0.5); CHLORIDE 107 mmol/L (98-107); CREATININE 1.46 mg/dL (0.55-1.30); GLUCOSE 76 mg/dL (70-99); LACTATE DEHYDROGENASE 418 U/L (85-227); PHOSPHORUS 3.2 mg/dL (2.7-4.5); TOTAL BILIRUBIN 1.6 mg/dL (0.0-1.0); UREA NITROGEN, BLOOD 28 mg/dL (8-21)
--- NOTE | 2022-08-07 07:40 | NUR ---
rn opening note Report was endorsed by night nurse. Patient appears to be resting with both eyes closed no signs of any distress, breathing is equal and non labored. patient is on tele monitor
[2022-08-07 08:00] VITALS: BP_SYST 105
[2022-08-07] MEDS: FUROSEMIDE 20 MG TABLET PO SCH ×2 (08:47→21:29)
[2022-08-07] MEDS: POTASSIUM CHLORIDE 10 MEQ TAB.PRT.SR PO SCH ×2 (08:47→21:29)
[2022-08-07] MEDS: DABIGATRAN ETEXILATE MESYLATE 75 MG CAPSULE PO SCH ×2 (08:48→21:30)
[2022-08-07] MEDS: DILTIAZEM HCL 120 MG CAP.SR.24H PO SCH (08:49)
[2022-08-07] MEDS: PANTOPRAZOLE SODIUM 40 MG/VIAL (PROTONIX) IVP SCH (08:49)
[2022-08-07] MEDS: ALLOPURINOL 100 MG TABLET (ZYLOPRIM) PO SCH (08:49)
--- NOTE | 2022-08-07 08:57 | NUR ---
MEDICATION Addendum: 08/07/22 at 1647 by Judy Hudson RN patients scheduled medication given per order. patient tolerated well. patient educated telemetry monitor light for assistance. call light is with him no other needs at this time.
[2022-08-07 08:58] LABS: ERYTHROCYTE SEDIMENTATION RATE 28 MM/HR (0-15)
[2022-08-07 10:08] LABS: BILIRUBIN,URINE NEGATIVE (NEGATIVE); CLARITY/URINE CLEAR (CLEAR); COLOR,URINE YELLOW (YELLOW); GLUCOSE,URINE NEGATIVE (NEGATIVE); KETONES,URINE NEGATIVE (NEGATIVE); LEUKOCYTE ESTERASE ,URINE 1+ (NEGATIVE); NITRITE, URINE NEGATIVE (NEGATIVE); PH,URINE 5.5 (5.0-8.0); PROTEIN URINE NEGATIVE (NEGATIVE)
[2022-08-07 10:09] LABS: BLOOD, URINE TRACE (NEGATIVE)
[2022-08-07 10:15] LABS: BACTERIA,URINE None Seen /HPF (None Seen); MUCUS,URINE None Seen /LPF (None Seen); RBC,URINE 0-3 /HPF (0-3)
--- NOTE | 2022-08-07 11:48 | NUR ---
Nutrition F/U Admitting Diagnosis Sepsis, UTI Reviewed Pertinent Medical/Surgical Hx Medical Record Medical History Comment: per EMR: 77y bedridden [facility] and vomiting x 2 days. PMHx includes HLD, HTN, afib, gout. Patient found with suspected UTI, MIKEL, elevated LFTs, and pneumonia. Subjective Information RD deferred pt visit d/t contact precautions/isolation room. RD s/w pt RN about his condition. Pt is not eating well, avg of 29% x 7 meals. RN said that pt appears to be getting a wound on his bottom, likely d/t him being bedridden and at a heavier weight. RD suggested Gustabo BID to help with potential wound and sepsis. Per EMR review: LBM documented 08/07/22 x 2; pt abd firm and distended; hypoactive bowel sounds. Pt PO likely inadequate to meet nutritional needs. Current Diet Order/Nutrition Support Cardiac, soft, Ensure Enlive BID x 3 days Patient/Significant Other Able To Verbalize Education Provided Not Indicated NEW Pertinent Medications kdur, pradaxa, lipitor, lasix, zofran, D5 1/2NS @ 100mL, Cardizem, protonix IV, piper/tazo NEW Pertinent Labs BUN 28H, Cre 1.46H, Ca 7.0 L, Bili 1.6 H, AST 509 H, ALT 351 H, CRP 18.2 H Height (Feet) 5 feet Height (Inches) 8.00 inches Weight weight fluctuating since admit 249 pounds/ 112.945 kg Body Mass Index 37.86 kg/m2 Usual Weight 277 lbs Glenn/Adjusted Body Weight 154lb/ 70kg Recent Weight Change Yes - Pt reports 277# 8/; 249# 12/29 = 28lb loss x 6 months Weight Status Obese Gastrointestinal Symptoms Nausea Last BM 08/07/22 x 3 Food Allergies No Usual Diet At Home Regular Skin Integrity Comment: Steven 14: Sacrum intact skin - old, healing wound; Generalized 2+ pitting edema 1/ Current % PO Poor avg 29% x 7 meals Estimated Energy Expenditure (kcals/day) 8156-9022 (25-30 kcal/kg IBW for BMI >30, sepsis, bedridden) Estimated Protein Required (g/day) 70-105 (1-1.5 g/kg IBW for BMI >30, sepsis, MIKEL) Estimated Fluid Required (l/day) per MD d/t MIKEL Problem/Etiology/Signs/Symptoms * Inadequate oral intake r/t lack of appetite a/e/b negligible PO intake since admit (improving) Expected Outcomes/Goals PO intake provides >85% estimated nutritional needs, weight maintenance/skin integrity, nturition-related labs WNL, normal GI function w/ BM q 1-3 days Dietitian Recommendations * Continue: GI soft, cardiac diet + Ensure BID (ONS provides 700kcals, 26g PRO) * Verify patient weight via bed scale as soon as feasible * Consider Gustabo BID for sepsis Follow Up High Risk: F/U in 2-3days GS, MPH, RD
--- NOTE | 2022-08-07 11:52 | NUR ---
Dietitian Recommendations * Continue: GI soft, cardiac diet + Ensure BID (ONS provides 700kcals, 26g PRO) * Verify patient weight via bed scale as soon as feasible * Consider Gustabo BID for sepsis GS, MPH, RD Please refer to Nutrition F/U for further details. Thanks!
[2022-08-07 11:57] VITALS: BP_SYST 128
--- NOTE | 2022-08-07 12:48 | NUR ---
MEDICATION PATIENTS SCHEDULED IN MEDICATION. PATIENT IS AWAKE AND ALERT NO SIGNS OF ANY DISTRESS, BREATHING IS EQUAL AND NON LABORED. PATIENT HAS CALL LIGHT IS WITH HIM EDUCATED TO USE FOR ASSISTANCE. NO OTHER NEEDS AT THIS TIME.
[2022-08-07] MEDS: D5/0.45 NS 1,000 ML IV SCH ×2 (15:36→19:45)
--- NOTE | 2022-08-07 15:38 | NUR ---
IV FLUID NEW BAG HUNG PER ORDER. PATIENT APPEARS TO BE RESTING WITH BOTH EYES CLOSED NO SIGNS OF ANY DISTRESS, BREATHING IS EQUAL AND NON LABORED. TELEMONITOR ON. CALL LIGHT IS WITH IN REACH. PATIENT HAS OXYGEN NASAL CANNULA ON. NO OTHER NEEDS AT THIS TIME.
[2022-08-07 16:26] VITALS: BP_SYST 119
--- NOTE | 2022-08-07 18:46 | NUR ---
rn closing note Patient is awake and alert is at bedside. patient has no complaints at this time. call light is with him educated to use for assistance. patients scheduled medication given per order. no other needs at this time.
--- NOTE | 2022-08-07 19:15 | NUR ---
OPENING NOTES Patient resting in bed - no s/s pain or distress noted. Respirations even and unlabored - head of bed elevated 4L NC. IV site patent - no s/s redness, infection, or infiltration. Bed locked and in lowest position. Call light within reach bed alarm on.
[2022-08-07 20:00] VITALS: BP_SYST 107; BP_SYST 96
[2022-08-08] MEDS: PIPERACILLIN/TAZO 2.25G/DEX-IS 50 ML IV SCH ×4 (01:00→18:14)
[2022-08-08 01:14] VITALS: BP_SYST 105
[2022-08-08] MEDS: D5/0.45 NS 1,000 ML IV SCH ×2 (04:46→14:49)
[2022-08-08] MEDS: NORMAL SALINE 5 ML DISP.SYRIN IVF SCH ×3 (06:10→21:26)
--- NOTE | 2022-08-08 07:02 | NUR ---
CLOSING NOTES Patient resting in bed - no s/s pain or distress noted. Respirations even and unlabored - head of bed elevated 3L NC. IV site patent - no s/s redness, infection, or infiltration. Bed locked and in lowest position. Call light within reach bed alarm on. Patient cleaned linens changed approximately 0530
[2022-08-08 07:14] LABS: BASOPHILS % (AUTO) 0.5 % (0.0-2.0); EOSINOPHILS # (AUTO) 0.4 K/uL (0.0-0.4); EOSINOPHILS % (AUTO) 9.9 % (0.0-4.0); HEMATOCRIT 30.6 % (36-54); HEMOGLOBIN 10.2 g/dL (14.0-18.0); LYMPHOCYTES # (AUTO) 1.1 K/uL (1.0-5.5); LYMPHOCYTES % (AUTO) 24.8 % (20.5-51.5); MEAN CORPUSCULAR HEMOGLOBIN 27 pg (27-31); MEAN CORPUSCULAR HGB CONC 33 % (32-36); MEAN CORPUSCULAR VOLUME 82 fL (79.0-98.0); MONOCYTES # (AUTO) 0.5 K/uL (0.0-1.0); MONOCYTES % (AUTO) 11.2 % (1.7-9.3); NEUTROPHILS # (AUTO) 2.4 K/uL (1.8-7.7); NEUTROPHILS % (AUTO) 53.6 % (40.0-70.0); PLATELET COUNT (AUTO) 238 K/uL (130-430); RED BLOOD CELL COUNT(AUTO) 3.74 MIL/uL (4.2-6.2); RED CELL DISTRIBUTION WIDTH 17.1 % (9.0-15.0); WHITE BLOOD COUNT (AUTO) 4.4 K/uL (4.8-10.8)
[2022-08-08 07:20] LABS: ALANINE AMINOTRANSFERASE 279 U/L (12-78); ALBUMIN 1.6 g/dL (3.4-4.8); ANION GAP 6 (5-15); ASPARTATE AMINOTRANSFERASE 388 U/L (10-37); C-REACTIVE PROTEIN QUANT 12.4 mg/dL (0-0.5); CHLORIDE 106 mmol/L (98-107); CREATININE 1.45 mg/dL (0.55-1.30); GLUCOSE 94 mg/dL (70-99); PHOSPHORUS 2.5 mg/dL (2.7-4.5); TOTAL BILIRUBIN 1.2 mg/dL (0.0-1.0); UREA NITROGEN, BLOOD 23 mg/dL (8-21)
[2022-08-08 08:00] VITALS: BP_SYST 103
[2022-08-08] MEDS: FUROSEMIDE 20 MG TABLET PO SCH ×2 (08:20→21:25)
[2022-08-08] MEDS: POTASSIUM CHLORIDE 10 MEQ TAB.PRT.SR PO SCH ×2 (08:20→21:26)
[2022-08-08] MEDS: ALLOPURINOL 100 MG TABLET (ZYLOPRIM) PO SCH (08:21)
[2022-08-08] MEDS: PANTOPRAZOLE SODIUM 40 MG/VIAL (PROTONIX) IVP SCH (08:22)
[2022-08-08] MEDS: DABIGATRAN ETEXILATE MESYLATE 75 MG CAPSULE PO SCH ×2 (08:22→21:25)
[2022-08-08] MEDS: DILTIAZEM HCL 120 MG CAP.SR.24H PO SCH (08:29)
[2022-08-08 10:15] LABS: ERYTHROCYTE SEDIMENTATION RATE 30 MM/HR (0-15)
[2022-08-08 12:29] VITALS: BP_SYST 132
[2022-08-08 16:30] VITALS: BP_SYST 137
--- NOTE | 2022-08-08 19:15 | NUR ---
OPENING NOTES Patient resting in bed - no s/s pain or distress noted. Respirations even and unlabored - head of bed elevated 2L NC. IV site patent - no s/s redness, infection, or infiltration. Bed locked and in lowest position. Call light within reach bed alarm on.
[2022-08-08 20:00] VITALS: BP_SYST 97
[2022-08-09] VITALS: BP_SYST 101
[2022-08-09] MEDS: PIPERACILLIN/TAZO 2.25G/DEX-IS 50 ML IV SCH ×4 (00:09→17:31)
[2022-08-09] MEDS: D5/0.45 NS 1,000 ML IV SCH ×3 (00:09→20:08)
[2022-08-09 05:08] LABS: HEPATITIS A AB, IgM Negative (Negative); HEPATITIS B CORE AB, IgM Negative (Negative); HEPATITIS B SURFACE AG Negative (Negative)
[2022-08-09] MEDS: NORMAL SALINE 5 ML DISP.SYRIN IVF SCH ×3 (06:28→22:00)
--- NOTE | 2022-08-09 07:00 | NUR ---
Report received from shiftman RN for continuity of care. Patient stable condition. No distress noted.
[2022-08-09 07:12] LABS: BASOPHILS % (AUTO) 0.8 % (0.0-2.0); EOSINOPHILS # (AUTO) 0.7 K/uL (0.0-0.4); EOSINOPHILS % (AUTO) 14.7 % (0.0-4.0); HEMATOCRIT 31.1 % (36-54); HEMOGLOBIN 10.5 g/dL (14.0-18.0); LYMPHOCYTES # (AUTO) 1.5 K/uL (1.0-5.5); LYMPHOCYTES % (AUTO) 32.2 % (20.5-51.5); MEAN CORPUSCULAR HEMOGLOBIN 27 pg (27-31); MEAN CORPUSCULAR HGB CONC 34 % (32-36); MEAN CORPUSCULAR VOLUME 81 fL (79.0-98.0); MONOCYTES # (AUTO) 0.5 K/uL (0.0-1.0); MONOCYTES % (AUTO) 10.4 % (1.7-9.3); NEUTROPHILS # (AUTO) 1.9 K/uL (1.8-7.7); NEUTROPHILS % (AUTO) 41.9 % (40.0-70.0); PLATELET COUNT (AUTO) 240 K/uL (130-430); RED BLOOD CELL COUNT(AUTO) 3.85 MIL/uL (4.2-6.2); RED CELL DISTRIBUTION WIDTH 17.2 % (9.0-15.0); WHITE BLOOD COUNT (AUTO) 4.5 K/uL (4.8-10.8)
--- NOTE | 2022-08-09 07:17 | NUR ---
CLOSING NOTES Patient resting in bed - no s/s pain or distress noted. Respirations even and unlabored - head of bed elevated 2L NC. IV site patent - no s/s redness, infection, or infiltration. Bed locked and in lowest position. Call light within reach bed alarm on. patient cleaned linens changed
[2022-08-09 07:21] LABS: ALANINE AMINOTRANSFERASE 224 U/L (12-78); ALBUMIN 1.5 g/dL (3.4-4.8); ANION GAP 9 (5-15); ASPARTATE AMINOTRANSFERASE 254 U/L (10-37); CALCIUM 7.3 mg/dL (8.4-11.0); CHLORIDE 104 mmol/L (98-107); CREATININE 1.22 mg/dL (0.55-1.30); GLUCOSE 71 mg/dL (70-99); PHOSPHORUS 2.5 mg/dL (2.7-4.5); TOTAL BILIRUBIN 1.4 mg/dL (0.0-1.0); UREA NITROGEN, BLOOD 17 mg/dL (8-21)
[2022-08-09 08:00] VITALS: BP_SYST 104; BP_SYST 98
[2022-08-09] MEDS: ALLOPURINOL 100 MG TABLET (ZYLOPRIM) PO SCH (09:29)
[2022-08-09] MEDS: PANTOPRAZOLE SODIUM 40 MG/VIAL (PROTONIX) IVP SCH (09:29)
[2022-08-09] MEDS: FUROSEMIDE 20 MG TABLET PO SCH ×2 (09:30→20:02)
[2022-08-09] MEDS: POTASSIUM CHLORIDE 10 MEQ TAB.PRT.SR PO SCH ×2 (09:30→20:02)
[2022-08-09] MEDS: DILTIAZEM HCL 120 MG CAP.SR.24H PO SCH (09:30)
[2022-08-09] MEDS: DABIGATRAN ETEXILATE MESYLATE 75 MG CAPSULE PO SCH ×2 (09:31→20:03)
[2022-08-09 12:05] VITALS: BP_SYST 102
[2022-08-09] MEDS ORDERED: K PHOS 30 MM in NS 250 ML IV ONE (13:00)
[2022-08-09 15:18] VITALS: BP_SYST 102
[2022-08-09 15:48] VITALS: BP_SYST 95
[2022-08-10 00:17] VITALS: BP_SYST 131
--- NOTE | 2022-08-10 02:55 | NUR ---
Received report from RIANNA Rodriguez for continuity of care. Pt asleep, no s/s distress. To monitor.
--- NOTE | 2022-08-10 02:57 | NUR ---
Report given to night baker RN for continuity of care. Patient stable condition.
[2022-08-10] MEDS: D5/0.45 NS 1,000 ML IV SCH ×2 (03:08→12:58)
--- NOTE | 2022-08-10 03:28 | NUR ---
Dr. Amato at station and per ID point of view pt can be discharged and DC antibiotic. MD went to inform pt at bedside. Pt on room air now.
[2022-08-10] MEDS: PIPERACILLIN/TAZO 2.25G/DEX-IS 50 ML IV SCH ×3 (06:00→12:57)
[2022-08-10] MEDS: NORMAL SALINE 5 ML DISP.SYRIN IVF SCH ×2 (06:29→12:58)
[2022-08-10 06:56] LABS: ALANINE AMINOTRANSFERASE 160 U/L (12-78); ALBUMIN 1.5 g/dL (3.4-4.8); ANION GAP 4 (5-15); ASPARTATE AMINOTRANSFERASE 167 U/L (10-37); CALCIUM 7.3 mg/dL (8.4-11.0); CHLORIDE 105 mmol/L (98-107); CREATININE 1.33 mg/dL (0.55-1.30); GLUCOSE 77 mg/dL (70-99); TOTAL BILIRUBIN 1.3 mg/dL (0.0-1.0); UREA NITROGEN, BLOOD 14 mg/dL (8-21)
[2022-08-10 06:58] LABS: BASOPHILS % (AUTO) 0.4 % (0.0-2.0); EOSINOPHILS # (AUTO) 0.8 K/uL (0.0-0.4); EOSINOPHILS % (AUTO) 17.7 % (0.0-4.0); HEMATOCRIT 29.3 % (36-54); HEMOGLOBIN 9.8 g/dL (14.0-18.0); LYMPHOCYTES # (AUTO) 1.5 K/uL (1.0-5.5); LYMPHOCYTES % (AUTO) 33.4 % (20.5-51.5); MEAN CORPUSCULAR HEMOGLOBIN 27 pg (27-31); MEAN CORPUSCULAR HGB CONC 34 % (32-36); MEAN CORPUSCULAR VOLUME 82 fL (79.0-98.0); MONOCYTES # (AUTO) 0.6 K/uL (0.0-1.0); MONOCYTES % (AUTO) 13.5 % (1.7-9.3); NEUTROPHILS # (AUTO) 1.6 K/uL (1.8-7.7); PLATELET COUNT (AUTO) 227 K/uL (130-430); RED BLOOD CELL COUNT(AUTO) 3.58 MIL/uL (4.2-6.2); RED CELL DISTRIBUTION WIDTH 16.5 % (9.0-15.0); WHITE BLOOD COUNT (AUTO) 4.6 K/uL (4.8-10.8)
[2022-08-10 08:52] LABS: ERYTHROCYTE SEDIMENTATION RATE 34 MM/HR (0-15)
[2022-08-10] MEDS: PANTOPRAZOLE SODIUM 40 MG/VIAL (PROTONIX) IVP SCH (10:15)
[2022-08-10] MEDS: ALLOPURINOL 100 MG TABLET (ZYLOPRIM) PO SCH (10:16)
[2022-08-10] MEDS: DILTIAZEM HCL 120 MG CAP.SR.24H PO SCH (10:16)
[2022-08-10] MEDS: POTASSIUM CHLORIDE 10 MEQ TAB.PRT.SR PO SCH (10:17)
[2022-08-10] MEDS: FUROSEMIDE 20 MG TABLET PO SCH (10:17)
[2022-08-10] MEDS: DABIGATRAN ETEXILATE MESYLATE 75 MG CAPSULE PO SCH (10:18)
[2022-08-10 11:30] VITALS: BP_SYST 112
--- NOTE | 2022-08-10 14:00 | NUR ---
Wound Evaluation: Wound Consult ordered for Low Steven Score. Patient evaluated for a low Steven score of 13. Patient was awake, alert, and received in a [employer] Bed with an Isoflex KANA mattress with low air loss therapy initiated. Patient needs assist to turn in bed. Skin assessment: 1. Sacral area: Scar tissue, present on admission. Commend: Cleanse involved area with mild soap and water. Pat dry. Apply moisture barrier cream to involved area. Cover site with sacral foam dressing. Perform site care daily, and as needed for dressing soiling or dislodgment. 2. Left Lower Extremity: Dry flaky skin with hemosiderin staining, and 3+ pitting edema. No odor, no drainage. 3. Right Lower Extremity: Dry flaky skin with hemosiderin staining, and 4+ pitting edema. No odor, no drainage. Recommend: Cleanse involved areas with mild soap and water. Gently pat dry. Apply Eucerin cream to involved areas. Perform site care twice daily. Elevate extremities as tolerated every shift. Recommend reposition patient side to side only every 2 hours with pillow support. Elevate, off-load and float bilateral heels with pillows. Offload pressure areas with pillows for pressure re-distribution. Perform skin care and monitor skin integrity Q shift. Use moisture barrier cream on moisture susceptible areas QID and PRN for soiling. Maintain patient on a low air-loss mattress.
[2022-08-10 16:00] VITALS: BP_SYST 108
[2022-08-10 17:37] VITALS: BP_SYST 118
--- NOTE | 2022-08-10 18:49 | NUR ---
PATIENT DC BACK TO [facility] AT FACILITY AWARE AND MADE AWARE, MIDLINE IN MO DC WITH CATH INTACT AND NO REDNESS OBSERVED, PATIENT TRANSPORTED VIA VAN SERVICE, NO OTHER NEEDS
== END 2022-08-10 18:38 | disposition home or self-care (01) | DRG 871 ==
LOC: SED 14:14 → STU 22:41 → SMU 08-08 13:04
PROVIDERS: ADMIT Preventive Medicine Preventive Medicine/Occupational Environmental Medicine; ATTEND Preventive Medicine Preventive Medicine/Occupational Environmental Medicine
PROC: 05HY33Z Insertion of Infusion Device into Upper Vein, Percutaneous Approach (ICD-10-PCS; principal; 2022-08-06)
PROC: B54NZZA Ultrasonography of Left Upper Extremity Veins, Guidance (ICD-10-PCS; 2022-08-06)
DX: A41.9 Sepsis, unspecified organism (principal); E43 Unspecified severe protein-calorie malnutrition; J18.9 Pneumonia, unspecified organism; K72.00 Acute and subacute hepatic failure without coma; N39.0 Urinary tract infection, site not specified; N17.9 Acute kidney failure, unspecified; E87.20 Acidosis, unspecified; Z68.41 Body mass index [BMI] 40.0-44.9, adult; E83.52 Hypercalcemia; R74.01 Elevation of levels of liver transaminase levels; E80.6 Other disorders of bilirubin metabolism; E88.09 Other disorders of plasma-protein metabolism, not elsewhere classified; I11.0 Hypertensive heart disease with heart failure; I50.9 Heart failure, unspecified; M10.9 Gout, unspecified; E78.5 Hyperlipidemia, unspecified; E83.51 Hypocalcemia; E87.6 Hypokalemia; D64.9 Anemia, unspecified; Z20.822 Contact with and (suspected) exposure to COVID-19; B96.20 Unspecified Escherichia coli [E. coli] as the cause of diseases classified elsewhere; D72.819 Decreased white blood cell count, unspecified; E83.39 Other disorders of phosphorus metabolism; I48.91 Unspecified atrial fibrillation
CPT/HCPCS: 36415; 71045; 76376; 76700-TC; 80048; 80053; 80074; 81000; 82009; 82150; 83605; 83615; 83690; 83735; 84100; 84443; 85025; 85610-TC; 85651-TC; 86140; 87040; 87086; 93005; 94640; 94760; 96365; 96375; 97163-GP; 99291; C9113; G0378; J2405; J2543; J7030; J7050; J7613; Q0162; Q9963

== ENCOUNTER 2022-08-16 00:40 | Inpatient (IN) | payer OTHER ==
[~2022-08-16] VITALS: Ht 172.7 cm; Wt 129.7 kg
[~2022-08-16 00:40] MED LIST: ALLO100T PO; DABI150C PO; DILT120C89 PO; FURO-150 PO; POTA-197 PO
[2022-08-16] MEDS ORDERED: DEXTROSE 50% JECT 50 ML DISP.SYRIN IVP ONE ×3 (00:45→02:30)
--- NOTE | 2022-08-16 00:46 | NUR ---
Patient triaged and placed in ED RM 8. Connected to monitor. MD Murillo notified of need for MSE.
--- NOTE | 2022-08-16 00:47 | NUR ---
ER Dr. SCOTT at bedside examining patient.
--- NOTE | 2022-08-16 00:48 | NUR ---
PATIENT BROUGHT IN BY [facility] SQ 64 FROM [facility] CARE FOR VOMITING AND ABDOMINAL PAIN STARTING TODAY. REPORT OF BLOOD SUGAR 54 BY EMS. PATIENT WAS NOT GIVEN ANY D10 PRIOR TO ARRIVAL AND NO IV ACCESS. DENIES ANY PAIN. AOX3.
--- NOTE | 2022-08-16 00:50 | NUR ---
ACCU CHECK RENDERED; BS 16. RECHECKED FOR ACCURACY W/ SAME BS READING OF 16. MD SCOTT MADE AWARE W/ NEW ORDERS IN PLACE. PT REMAINS AWAKE/RESPONSIVE AT THIS TIME.
[2022-08-16 00:56] VITALS: BP_SYST 114
[2022-08-16 01:20] LABS: BASOPHILS # (AUTO) 0.1 K/uL (0.0-0.2); BASOPHILS % (AUTO) 0.8 % (0.0-2.0); EOSINOPHILS # (AUTO) 0.9 K/uL (0.0-0.4); EOSINOPHILS % (AUTO) 12.1 % (0.0-4.0); HEMATOCRIT 25.6 % (36-54); HEMOGLOBIN 8.5 g/dL (14.0-18.0); LYMPHOCYTES % (AUTO) 38.2 % (20.5-51.5); MEAN CORPUSCULAR HEMOGLOBIN 27 pg (27-31); MEAN CORPUSCULAR HGB CONC 33 % (32-36); MEAN CORPUSCULAR VOLUME 81 fL (79.0-98.0); MONOCYTES # (AUTO) 0.7 K/uL (0.0-1.0); MONOCYTES % (AUTO) 8.9 % (1.7-9.3); NEUTROPHILS # (AUTO) 3.1 K/uL (1.8-7.7); PLATELET COUNT (AUTO) 344 K/uL (130-430); RED BLOOD CELL COUNT(AUTO) 3.15 MIL/uL (4.2-6.2); RED CELL DISTRIBUTION WIDTH 16.7 % (9.0-15.0); WHITE BLOOD COUNT (AUTO) 7.7 K/uL (4.8-10.8)
--- NOTE | 2022-08-16 01:26 | NUR ---
ACCRIKY Ames MD NOTIFIED D50 ORDERED AND GIVEN
[2022-08-16 01:31] LABS: ANION GAP 9 (5-15); CALCIUM 7.3 mg/dL (8.4-11.0); CHLORIDE 106 mmol/L (98-107); CREATININE 1.22 mg/dL (0.55-1.30); GLUCOSE 151 mg/dL (70-99); UREA NITROGEN, BLOOD 10 mg/dL (8-21)
[2022-08-16 01:40] LABS: ALANINE AMINOTRANSFERASE 52 U/L (12-78); ALBUMIN 1.7 g/dL (3.4-4.8); ASPARTATE AMINOTRANSFERASE 47 U/L (10-37)
[2022-08-16] MEDS ORDERED: POTASSIUM CHLORIDE 20 MEQ TAB.PRT.SR PO ONE (01:45)
[2022-08-16 01:49] LABS: BILIRUBIN,URINE 1+ (NEGATIVE); BLOOD, URINE 2+ (NEGATIVE); CLARITY/URINE CLOUDY (CLEAR); COLOR,URINE YELLOW (YELLOW); GLUCOSE,URINE NEGATIVE (NEGATIVE); KETONES,URINE TRACE (NEGATIVE); LEUKOCYTE ESTERASE ,URINE 3+ (NEGATIVE); NITRITE, URINE NEGATIVE (NEGATIVE); PROTEIN URINE 2+ (NEGATIVE)
[2022-08-16 01:58] LABS: BACTERIA,URINE MANY /HPF (None Seen); WBC,URINE >100 /HPF (0-3)
[2022-08-16] MEDS ORDERED: cefTRIAXone 1 GM IVPB PREMIX 50 ML IV ONE (02:15)
--- NOTE | 2022-08-16 02:20 | NUR ---
ACCUCHECK 75 MD NOTIFIED. D50 ORDERED AND GIVEN
--- NOTE | 2022-08-16 03:02 | NUR ---
[facility] ACCEPTED TRANSFER. AWAITING TRANSFER INFORMATION
--- NOTE | 2022-08-16 03:10 | NUR ---
REPORT GIVEN TO RIANNA LAL FOR CONTINUATION OF CARE. ALL CARE ENDORSED
--- NOTE | 2022-08-16 03:23 | NUR ---
Received report at this time. First contact. Pt presently on monitor. Provided additional blankets.
[2022-08-16] MEDS ORDERED: NACL 0.9% 1,000 ML IV ONE ×2 (04:00→07:45)
[2022-08-16] MEDS ORDERED: D5NS 1,000 ML IV ONE (04:00)
--- NOTE | 2022-08-16 05:30 | NUR ---
Admit bed requested Patient will be admitted to care of . Admitted to tele unit. Diagnosis Hypoglycemia Inpatient Yes Observation No Orientation concerns or request close to nursing station No Covid Status Negative On vent or bipap N/a Isolation requirements None Needs a sitter NO From Home No, [facility] Requires Dialysis No Med Rec Completed Yes
[2022-08-16] MEDS: D5NS 1,000 ML IV SCH ×2 (06:07→13:35)
--- NOTE | 2022-08-16 06:28 | NUR ---
BLOOD SUGAR check 67.
--- NOTE | 2022-08-16 06:35 | NUR ---
Instructed community health nurse to page admitting physician.
--- NOTE | 2022-08-16 06:45 | NUR ---
Pt is asymptomatic. Denies feeling any problems although hypotensive. AAOx4.
--- NOTE | 2022-08-16 07:10 | NUR ---
Spoke with admitting doctor. Dr. Fuller regarding patient's blood pressure trends. (Please see vitals signs interventions). Received telephone order to admin 1 Liter Normal saline bolus stat and if after 1 liter bolus patient's sbp is not above 90mmhg and maintains sbp>90mmhg start levophed gtt to keep MAP >65. Report given to dayshift nurse and dayshift nurse aware of parameters.
[2022-08-16] MEDS ORDERED: ACETAMINOPHEN 325 MG TABLET PO PRN ×2 (07:15→08:00)
[2022-08-16] MEDS ORDERED: ONDANSETRON HCL 4 MG/2 ML VIAL IVP PRN (07:15)
[2022-08-16] MEDS ORDERED: DOCUSATE SODIUM 100 MG CAPSULE PO PRN (07:15)
[2022-08-16] MEDS ORDERED: MAGNESIUM SULFATE 50 ML IV PRN (07:15)
[2022-08-16] MEDS ORDERED: MORPHINE 2 MG/ML INJ. SYRINGE IVP PRN ×2 (07:15)
[2022-08-16] MEDS ORDERED: NOREPINEPHRINE BITARTRATE 4 MG in D5W 246 ML IV PRN (07:45)
[2022-08-16] MEDS ORDERED: NS 500 ML IV ONE (07:45)
--- NOTE | 2022-08-16 07:46 | NUR ---
ADMISSION CONSULT HAS BEEN PAGED ORDERED BY DR. ECHEVERRIA.
--- NOTE | 2022-08-16 08:24 | NUR ---
PATIENT REPOSITIONNED.
[2022-08-16] MEDS: PIPERACILLIN/TAZO 3.375/DEX-IS 50 ML IV SCH ×3 (08:26→17:08)
--- NOTE | 2022-08-16 08:42 | NUR ---
DR SUTTON AT BEDSIDE FOR INITIAL ASSESSMENT.
--- NOTE | 2022-08-16 09:22 | NUR ---
ECHO BEING DONE AT BEDSIDE, PT TOLERATED IT WELL
[2022-08-16] MEDS ORDERED: ALBUMIN HUMAN 25% 100 ML IV ONE (10:00)
[2022-08-16] MEDS ORDERED: ALLOPURINOL 100 MG TABLET (ZYLOPRIM) PO ONE (10:00)
[2022-08-16] MEDS ORDERED: DABIGATRAN ETEXILATE MESYLATE 75 MG CAPSULE PO ONE (10:00)
[2022-08-16] MEDS ORDERED: DEXTROSE 50% JECT 50 ML DISP.SYRIN IVP PRN (10:45)
[2022-08-16 10:53] LABS: TOTAL IRON BIND. CAPACITY 95 ug/dL (250-450)
[2022-08-16 11:10] VITALS: BP_SYST 119
--- NOTE | 2022-08-16 11:11 | NUR ---
Patient will be admitted to [facility]. Admitted to TELE unit. Will go to room 100 B. Belongings list completed. Complete and up to date summary report printed. SBAR report to be given at bedside with opportunity for questions.
[2022-08-16] MEDS ORDERED: AMIO200T66 PO (11:33)
[2022-08-16] MEDS ORDERED: OMEP-455 PO (11:33)
[2022-08-16] MEDS: POTASSIUM CHLORIDE 20 MEQ TAB.PRT.SR PO PRN (11:52)
[2022-08-16 17:25] VITALS: BP_SYST 83
[2022-08-16 18:07] VITALS: BP_SYST 82
[2022-08-16] MEDS ORDERED: COMMUNICATION ORDER XX ONE (18:15)
[2022-08-16] MEDS ORDERED: MIDODRINE HCL 5 MG TABLET (PROAMATINE) PO ONE (18:15)
--- NOTE | 2022-08-16 18:19 | NUR ---
Notified Dr. Fuller of patients low blood pressure. stated to give midodrine once and hold all BP meds and lasix. If blood pressure does not improve transfer patient to ICU and start lveophed.
[2022-08-16 18:59] VITALS: BP_SYST 136
--- NOTE | 2022-08-16 19:15 | NUR ---
RECEIVED REPORT FROM OFF GOING NURSE.
[2022-08-16] MEDS: D10W 1,000 ML IV SCH (20:45)
[2022-08-16] MEDS ORDERED: FUROSEMIDE 20 MG/2 ML VIAL IVP ONE (20:45)
[2022-08-16] MEDS: DABIGATRAN ETEXILATE MESYLATE 75 MG CAPSULE PO SCH (21:00)
--- NOTE | 2022-08-16 21:00 | NUR ---
PT REFUSED 2100 DOSE OF PRADAXA STATED STOMACH REMAINED UPSET.
--- NOTE | 2022-08-16 23:15 | NUR ---
1930 PT LAYING IN BED WITH HOB UP 30 DEGREES. AAOX3 ATTEMPTING TO EAT SANDWICH. VS TAKEN BP 135/69 MAP 88 HR 80 R 22 BS 79 O2 SATS 98 % . BS 79 AFTER CONSUMING SANDWICH AND ORANGE. D5NS INFUSING @ 150ML/HR. LUNG SOUNDS CRACKLES WITH EXP WHEEZES FLUIDS TEMP STOPPED TO CALL . NOTIFIED OF PT ASSESSMENT ORDER GIVEN TO D/C CURRENT FLUIDS HAND D10 @ 50ML/HR GIVE 20MG LASIX IVP. ORDERS FOLLOWED.
[2022-08-17 00:12] VITALS: BP_SYST 129
[2022-08-17] MEDS: PIPERACILLIN/TAZO 3.375/DEX-IS 50 ML IV SCH ×4 (01:11→18:36)
[2022-08-17 06:46] VITALS: BP_SYST 116
[2022-08-17 06:58] LABS: BASOPHILS % (AUTO) 0.7 % (0.0-2.0); EOSINOPHILS # (AUTO) 0.7 K/uL (0.0-0.4); EOSINOPHILS % (AUTO) 13.5 % (0.0-4.0); HEMATOCRIT 25.8 % (36-54); HEMOGLOBIN 8.7 g/dL (14.0-18.0); LYMPHOCYTES # (AUTO) 1.1 K/uL (1.0-5.5); MEAN CORPUSCULAR HEMOGLOBIN 28 pg (27-31); MEAN CORPUSCULAR HGB CONC 34 % (32-36); MEAN CORPUSCULAR VOLUME 82 fL (79.0-98.0); MONOCYTES # (AUTO) 0.6 K/uL (0.0-1.0); MONOCYTES % (AUTO) 11.5 % (1.7-9.3); NEUTROPHILS % (AUTO) 54.3 % (40.0-70.0); PLATELET COUNT (AUTO) 283 K/uL (130-430); RED BLOOD CELL COUNT(AUTO) 3.16 MIL/uL (4.2-6.2); RED CELL DISTRIBUTION WIDTH 16.8 % (9.0-15.0); WHITE BLOOD COUNT (AUTO) 5.5 K/uL (4.8-10.8)
[2022-08-17 07:22] LABS: ALANINE AMINOTRANSFERASE 42 U/L (12-78); ALBUMIN 1.7 g/dL (3.4-4.8); ANION GAP 7 (5-15); ASPARTATE AMINOTRANSFERASE 31 U/L (10-37); CHLORIDE 110 mmol/L (98-107); CHOLESTEROL 65 mg/dL (<200); GLUCOSE 76 mg/dL (70-99); HDL CHOLESTEROL 22 mg/dL (>45); TOTAL BILIRUBIN 0.9 mg/dL (0.0-1.0); TRIGLYCERIDES 54 mg/dL (30-150); UREA NITROGEN, BLOOD 7 mg/dL (8-21)
[2022-08-17 08:10] LABS: CALCIUM 7.1 mg/dL (8.4-11.0)
[2022-08-17] MEDS ORDERED: FUROSEMIDE 40 MG TABLET PO ONE (10:00)
[2022-08-17] MEDS: ALLOPURINOL 100 MG TABLET (ZYLOPRIM) PO SCH (10:22)
[2022-08-17] MEDS: DABIGATRAN ETEXILATE MESYLATE 75 MG CAPSULE PO SCH ×2 (10:25→21:55)
[2022-08-17 12:32] VITALS: BP_SYST 128
[2022-08-17 14:20] VITALS: BP_SYST 128
[2022-08-17] MEDS ORDERED: NYSTATIN 15 GM TOPICAL POWDER TP ONE (16:15)
[2022-08-17] MEDS: D10W 1,000 ML IV SCH (17:55)
[2022-08-17 18:03] VITALS: BP_SYST 143
[2022-08-17] MEDS: NYSTATIN 15 GM TOPICAL POWDER TP SCH (21:00)
[2022-08-18 00:21] VITALS: BP_SYST 114
[2022-08-18] MEDS: PIPERACILLIN/TAZO 3.375/DEX-IS 50 ML IV SCH ×4 (02:57→17:27)
[2022-08-18 06:59] LABS: HEMATOCRIT 27.2 % (36-54); MEAN CORPUSCULAR HEMOGLOBIN 28 pg (27-31); MEAN CORPUSCULAR HGB CONC 33 % (32-36); MEAN CORPUSCULAR VOLUME 83 fL (79.0-98.0); PLATELET COUNT (AUTO) 271 K/uL (130-430); RED BLOOD CELL COUNT(AUTO) 3.28 MIL/uL (4.2-6.2); WHITE BLOOD COUNT (AUTO) 6.3 K/uL (4.8-10.8)
[2022-08-18 07:09] LABS: ANION GAP 8 (5-15); CHLORIDE 106 mmol/L (98-107); CREATININE 1.06 mg/dL (0.55-1.30); GLUCOSE 65 mg/dL (70-99); UREA NITROGEN, BLOOD 6 mg/dL (8-21)
[2022-08-18 07:55] VITALS: BP_SYST 128
--- NOTE | 2022-08-18 07:55 | NUR ---
INITIAL ROUNDS Received pt AAOx3, no s/s resp distress, no c/o pain or discomfort. Pt on Contact isolation precautions for ESBL of the urine. IVF infusing well at ordered rate with no s/s infiltration to site. Plan of care for the day reviewed with pt-pt verbalized his understanding. Pain management, disease process, isolation precautions and safety discussed-teach back done. Side rails up x3, bed alarm on for safety. Call light within reach.
[2022-08-18 08:28] LABS: FERRITIN 1462 ng/mL (30-400)
[2022-08-18] MEDS: FUROSEMIDE 40 MG TABLET PO SCH (09:09)
[2022-08-18] MEDS: DABIGATRAN ETEXILATE MESYLATE 75 MG CAPSULE PO SCH ×2 (09:10→20:17)
[2022-08-18] MEDS: ALLOPURINOL 100 MG TABLET (ZYLOPRIM) PO SCH (09:11)
[2022-08-18] MEDS: MUPIROCIN 2% TOPICAL OINTMENT 22 GM NS SCH ×3 (09:11→20:22)
[2022-08-18] MEDS: NYSTATIN 15 GM TOPICAL POWDER TP SCH ×2 (09:17→20:23)
--- NOTE | 2022-08-18 10:40 | NUR ---
PATIENT IS AT HIS PRIOR LEVEL OF FUNCTIONAL MOBILITY. DEPENDENT. HE IS NOT APPROPRIATE FOR PHYSICAL THERAPY IN THIS SETTING. RECOMMEND NURSING TO CONTINUE TO REPOSITION HIM SCHEDULED.
[2022-08-18 11:30] VITALS: BP_SYST 129
--- NOTE | 2022-08-18 12:30 | NUR ---
BLOOD SUGAR Pt's fingerstick 73 mg/dl, pt given 8 oz juice to drink, pt asymptomatic. Pt lunch here and pt encouraged to eat at least 50% of meal and to drink his Ensure-pt stated he will.
[2022-08-18 12:46] LABS: BAND % (MANUAL) 2 % (0-6); LYMPHOCYTES % (MANUAL) 26 % (20-46)
[2022-08-18 12:47] LABS: BASOPHILS % (MANUAL) 0 % (0-2); EOSINOPHILS % (MANUAL) 23 % (0-7); MONOCYTES % (MANUAL) 10 % (0-11)
--- NOTE | 2022-08-18 14:35 | NUR ---
Dietitian Recommendations * Continue regular diet, Ensure HP TID (all flavors) * Ordered- [place] BID * Consider a MVI for micronutrient coverage GS, MPH, RD Please refer to RD Assessment for further details. Thanks! Addendum: 08/18/22 at [address] Amended: Links added.
[2022-08-18] MEDS: D10W 1,000 ML IV SCH (15:05)
--- NOTE | 2022-08-18 17:27 | NUR ---
BLOOD SUGAR Pt's glucose 66 mg/dl, pt awake alert and oriented. Pt given 8 oz orange juice. Pt's at bedside encouraging pt to drink his ensure. All precautions remain in place. Call light within reach.
[2022-08-18 17:51] VITALS: BP_SYST 139
--- NOTE | 2022-08-18 19:25 | NUR ---
[id number] NOTE Pt resting quietly in bed with no s/s resp distress, no c/o pain or discomfort. IVF infusing well at ordered rate with no s/s infiltration to site. Contact isolation precautions maintained throughout shift. Skin and safety precautions remain in place. Call light within reach.
[2022-08-18 20:00] VITALS: BP_SYST 115
[2022-08-19] VITALS: BP_SYST 121
[2022-08-19] MEDS: PIPERACILLIN/TAZO 3.375/DEX-IS 50 ML IV SCH ×4 (06:04→17:49)
[2022-08-19 08:00] VITALS: BP_SYST 116
--- NOTE | 2022-08-19 08:00 | NUR ---
RECEIVED PATIENT FROM PM NURSE, ALERT AND ORIENTED, ABLE TO VERBALIZE NEEDS, NO C/O PAIN OR DISCOMFORT AT THIS TIME, WILL ASSUME ALL CARE OF PATIENT
[2022-08-19 08:21] LABS: BASOPHILS % (AUTO) 0.8 % (0.0-2.0); EOSINOPHILS # (AUTO) 1.9 K/uL (0.0-0.4); EOSINOPHILS % (AUTO) 33.2 % (0.0-4.0); HEMOGLOBIN 8.6 g/dL (14.0-18.0); LYMPHOCYTES # (AUTO) 1.6 K/uL (1.0-5.5); LYMPHOCYTES % (AUTO) 28.1 % (20.5-51.5); MEAN CORPUSCULAR HEMOGLOBIN 27 pg (27-31); MEAN CORPUSCULAR HGB CONC 33 % (32-36); MEAN CORPUSCULAR VOLUME 83 fL (79.0-98.0); MONOCYTES # (AUTO) 0.7 K/uL (0.0-1.0); MONOCYTES % (AUTO) 12.4 % (1.7-9.3); NEUTROPHILS # (AUTO) 1.5 K/uL (1.8-7.7); NEUTROPHILS % (AUTO) 25.5 % (40.0-70.0); PLATELET COUNT (AUTO) 262 K/uL (130-430); RED BLOOD CELL COUNT(AUTO) 3.15 MIL/uL (4.2-6.2); WHITE BLOOD COUNT (AUTO) 5.8 K/uL (4.8-10.8)
[2022-08-19 08:42] LABS: ANION GAP 3 (5-15); CALCIUM 7.1 mg/dL (8.4-11.0); CHLORIDE 105 mmol/L (98-107); CREATININE 1.19 mg/dL (0.55-1.30); GLUCOSE 78 mg/dL (70-99); UREA NITROGEN, BLOOD 7 mg/dL (8-21)
[2022-08-19] MEDS: D10W 1,000 ML IV SCH (08:45)
[2022-08-19] MEDS: ALLOPURINOL 100 MG TABLET (ZYLOPRIM) PO SCH (09:05)
[2022-08-19] MEDS: FUROSEMIDE 40 MG TABLET PO SCH (09:05)
[2022-08-19] MEDS: DABIGATRAN ETEXILATE MESYLATE 75 MG CAPSULE PO SCH ×2 (09:10→22:08)
[2022-08-19] MEDS: MUPIROCIN 2% TOPICAL OINTMENT 22 GM NS SCH ×2 (09:19→22:07)
[2022-08-19] MEDS: NYSTATIN 15 GM TOPICAL POWDER TP SCH ×2 (09:20→22:09)
[2022-08-19] MEDS ORDERED: MERO1PIG IV ×2 (10:36)
[2022-08-19 11:54] VITALS: BP_SYST 147
--- NOTE | 2022-08-19 12:00 | NUR ---
BLOOD SUGAR 62, NO C/O OF HYPOGLYCEMIA REPORTED, SNACKS OFFERED
[2022-08-19 16:04] VITALS: BP_SYST 132
--- NOTE | 2022-08-19 18:43 | NUR ---
ASHA SUPPLEMENT OFFERED MULTIPLE TIMES DURING SHIFT, PATIENT REFUSED
[2022-08-19 21:00] VITALS: BP_SYST 137
--- NOTE | 2022-08-19 21:45 | NUR ---
Patient awake OJ given po patient on IVF D10 @ 50 ML HR snacks po given also tolerated skin dry warm .
[2022-08-20 00:39] VITALS: BP_SYST 136
--- NOTE | 2022-08-20 02:02 | NUR ---
Hourly Rounding patient awake Reposition & Turning patient on two hour schedule also kept clean & dry as needed no SOB noted skin dry warm procedures explained / .
[2022-08-20] MEDS: D10W 1,000 ML IV SCH (03:17)
[2022-08-20] MEDS: PIPERACILLIN/TAZO 3.375/DEX-IS 50 ML IV SCH ×4 (03:17→17:40)
[2022-08-20 07:02] LABS: BASOPHILS % (AUTO) 0.7 % (0.0-2.0); EOSINOPHILS # (AUTO) 2.4 K/uL (0.0-0.4); HEMATOCRIT 26.7 % (36-54); HEMOGLOBIN 8.9 g/dL (14.0-18.0); LYMPHOCYTES # (AUTO) 1.5 K/uL (1.0-5.5); LYMPHOCYTES % (AUTO) 26.4 % (20.5-51.5); MEAN CORPUSCULAR HEMOGLOBIN 28 pg (27-31); MEAN CORPUSCULAR HGB CONC 34 % (32-36); MEAN CORPUSCULAR VOLUME 82 fL (79.0-98.0); MONOCYTES # (AUTO) 0.6 K/uL (0.0-1.0); MONOCYTES % (AUTO) 10.1 % (1.7-9.3); NEUTROPHILS # (AUTO) 1.1 K/uL (1.8-7.7); PLATELET COUNT (AUTO) 232 K/uL (130-430); RED BLOOD CELL COUNT(AUTO) 3.24 MIL/uL (4.2-6.2); RED CELL DISTRIBUTION WIDTH 16.9 % (9.0-15.0); WHITE BLOOD COUNT (AUTO) 5.5 K/uL (4.8-10.8)
[2022-08-20 07:26] LABS: ANION GAP 7 (5-15); CALCIUM 7.2 mg/dL (8.4-11.0); CHLORIDE 103 mmol/L (98-107); CREATININE 1.14 mg/dL (0.55-1.30); GLUCOSE 69 mg/dL (70-99); UREA NITROGEN, BLOOD 7 mg/dL (8-21)
--- NOTE | 2022-08-20 07:40 | NUR ---
OPENING NOTE Received report from arc cutter RN. Upon entering room, patient in bed sleeping. He shows no s/s of pain, discomfort or distress. Midline site intact. Patient checked for cleanliness. Call light within reach. Safety precautions observed.
[2022-08-20 08:22] VITALS: BP_SYST 125
[2022-08-20] MEDS: MUPIROCIN 2% TOPICAL OINTMENT 22 GM NS SCH ×2 (08:42→20:54)
[2022-08-20] MEDS: ALLOPURINOL 100 MG TABLET (ZYLOPRIM) PO SCH (08:43)
[2022-08-20] MEDS: FUROSEMIDE 40 MG TABLET PO SCH (08:43)
[2022-08-20] MEDS: DABIGATRAN ETEXILATE MESYLATE 75 MG CAPSULE PO SCH ×2 (08:44→20:56)
[2022-08-20] MEDS: NYSTATIN 15 GM TOPICAL POWDER TP SCH ×2 (08:45→20:56)
--- NOTE | 2022-08-20 09:00 | NUR ---
PATIENT VOMITED Patient vomited after PO meds given. Some PO meds visualized in vomit.
[2022-08-20 11:30] VITALS: BP_SYST 141
[2022-08-20 11:35] LABS: NEUTROPHILS % (AUTO) 19.8 % (40.0-70.0)
--- NOTE | 2022-08-20 12:30 | NUR ---
RN ROUNDS BS 57. Patient awake given ensure PO. Patient denies any symptoms of distress.
--- NOTE | 2022-08-20 14:00 | NUR ---
D/C TELE As per MD order.
[2022-08-20 16:20] VITALS: BP_SYST 133
[2022-08-20] MEDS ORDERED: METOPROLOL SUCCINATE 25 MG TAB.SR.24H (TOPROL XL) PO ONE (16:30)
[2022-08-20] MEDS ORDERED: SACUBITRIL/VALSARTAN 24 MG-26 MG 1 TABLET PO ONE (17:00)
--- NOTE | 2022-08-20 17:00 | NUR ---
BS LOW 57. [place] juice PO given. Patient denies any symptoms of distress.
--- NOTE | 2022-08-20 18:48 | NUR ---
CLOSING NOTE Patient in bed watching television and eating dinner. is at bedside at this time. Midline site intact, fluids ongoing. Patient denies s/s of pain, discomfort or distress. Call light within reach. Safety precautions observed. Will endorse to oncoming nurse.
[2022-08-20 20:00] VITALS: BP_SYST 125
[2022-08-20] MEDS: SACUBITRIL/VALSARTAN 24 MG-26 MG 1 TABLET PO SCH (20:54)
[2022-08-21] MEDS: PIPERACILLIN/TAZO 3.375/DEX-IS 50 ML IV SCH ×3 (00:15→12:04)
[2022-08-21] MEDS: D10W 1,000 ML IV SCH (00:16)
[2022-08-21 04:00] VITALS: BP_SYST 128
[2022-08-21 07:22] LABS: HEMATOCRIT 26.3 % (36-54); HEMOGLOBIN 8.7 g/dL (14.0-18.0); MEAN CORPUSCULAR HEMOGLOBIN 27 pg (27-31); MEAN CORPUSCULAR HGB CONC 33 % (32-36); MEAN CORPUSCULAR VOLUME 83 fL (79.0-98.0); PLATELET COUNT (AUTO) 245 K/uL (130-430); RED CELL DISTRIBUTION WIDTH 17.1 % (9.0-15.0)
[2022-08-21 07:23] LABS: ANION GAP 6 (5-15); CALCIUM 7.4 mg/dL (8.4-11.0); CHLORIDE 102 mmol/L (98-107); CREATININE 1.13 mg/dL (0.55-1.30); GLUCOSE 71 mg/dL (70-99); UREA NITROGEN, BLOOD 6 mg/dL (8-21)
[2022-08-21 08:00] VITALS: BP_SYST 104
--- NOTE | 2022-08-21 08:00 | NUR ---
Opening notes patient is AOX4. No ss of distress noted. Breathing is even and nonlabored, on room air. Vital signs obtained, as documented. IVF running. MO midline patent. Patient denies pain. No SOB noted. Bed is locked, alarm on, and at lowest position. Call light within reach.
[2022-08-21 08:19] LABS: WHITE BLOOD COUNT (AUTO) 6.1 K/uL (4.8-10.8)
[2022-08-21] MEDS ORDERED: AMOX-423 PO (08:20)
[2022-08-21] MEDS ORDERED: METOPROLOL SUCCINATE 25 MG TAB.SR.24H (TOPROL XL) PO SCH (09:00)
[2022-08-21] MEDS: FUROSEMIDE 40 MG TABLET PO SCH (09:00)
[2022-08-21] MEDS: SACUBITRIL/VALSARTAN 24 MG-26 MG 1 TABLET PO SCH (09:55)
[2022-08-21] MEDS: POTASSIUM CHLORIDE 20 MEQ TAB.PRT.SR PO PRN (09:56)
[2022-08-21] MEDS: ALLOPURINOL 100 MG TABLET (ZYLOPRIM) PO SCH (09:57)
[2022-08-21] MEDS: NYSTATIN 15 GM TOPICAL POWDER TP SCH (09:58)
[2022-08-21] MEDS ORDERED: POTASSIUM CHLORIDE 10 MEQ TAB.PRT.SR PO ONE (10:00)
[2022-08-21] MEDS: MUPIROCIN 2% TOPICAL OINTMENT 22 GM NS SCH (10:02)
[2022-08-21] MEDS: DABIGATRAN ETEXILATE MESYLATE 75 MG CAPSULE PO SCH (10:08)
--- NOTE | 2022-08-21 10:16 | NUR ---
notes Patient is resting, awake, in bed. No ss of distress noted. breathing is even and nonlabored, on room air. IVf running. MO midline patent. Blood return, flushes well. Patients most recent BP was 95/ 56 mmHg, HR was 59 bpm. BP taken on multiple sites. Medications Tropol Xl and Lasix not administered. Administered 40 mEq K- Dur, Potassium was 3.[address] and call light within reach.
[2022-08-21 11:20] VITALS: BP_SYST 95
--- NOTE | 2022-08-21 12:00 | NUR ---
Notes Patient is resting, has been cleaned and changed. No ss of distress noted. denies pain. patient stable. safety precautions in place and call light within reach.
[2022-08-21 14:21] LABS: BAND % (MANUAL) 0 % (0-6); BASOPHILS % (MANUAL) 0 % (0-2); EOSINOPHILS % (MANUAL) 48 % (0-7); LYMPHOCYTES % (MANUAL) 27 % (20-46); MONOCYTES % (MANUAL) 11 % (0-11)
[2022-08-21] MEDS ORDERED: POTASSIUM CHLORIDE 10 MEQ TAB.PRT.SR PO SCH (15:00)
[2022-08-21 15:39] VITALS: BP_SYST 135
[2022-08-21 15:55] VITALS: BP_SYST 135
--- NOTE | 2022-08-21 16:15 | NUR ---
D/C Patient Patient given medication reconciliation form and D/C instructions. Exit Care provided. Patient verbalized understanding. MD discussed with patient the results and treatment provided. Nonambulatory, discharge to home via ambulance. Patient in stable condition, ID band removed. IV catheter removed, intact and dressing applied, no active bleeding. Rx of given. Patient educated on pain management. All belongings sent with patient.
== END 2022-08-21 16:10 | disposition home or self-care (01) | DRG 871 ==
LOC: SED 00:40 → STU 05:51 → SMU 08-20 13:10
PROVIDERS: ADMIT Family Medicine; ATTEND Family Medicine
PROC: 05HY33Z Insertion of Infusion Device into Upper Vein, Percutaneous Approach (ICD-10-PCS; principal; 2022-08-17)
PROC: B54NZZA Ultrasonography of Left Upper Extremity Veins, Guidance (ICD-10-PCS; 2022-08-17)
PROC: 05HY33Z Insertion of Infusion Device into Upper Vein, Percutaneous Approach (ICD-10-PCS; 2022-08-17)
DX: A41.9 Sepsis, unspecified organism (principal); G93.41 Metabolic encephalopathy; I50.43 Acute on chronic combined systolic (congestive) and diastolic (congestive) heart failure; I48.20 Chronic atrial fibrillation, unspecified; N39.0 Urinary tract infection, site not specified; Z68.41 Body mass index [BMI] 40.0-44.9, adult; E16.2 Hypoglycemia, unspecified; E87.6 Hypokalemia; E66.01 Morbid (severe) obesity due to excess calories; M17.0 Bilateral primary osteoarthritis of knee; Z20.822 Contact with and (suspected) exposure to COVID-19; D64.9 Anemia, unspecified; I11.0 Hypertensive heart disease with heart failure; B96.20 Unspecified Escherichia coli [E. coli] as the cause of diseases classified elsewhere; I95.9 Hypotension, unspecified; R74.01 Elevation of levels of liver transaminase levels; Z74.01 Bed confinement status; Z79.899 Other long term (current) drug therapy; Z86.73 Personal history of transient ischemic attack (TIA), and cerebral infarction without residual deficits; Z79.01 Long term (current) use of anticoagulants; F44.4 Conversion disorder with motor symptom or deficit
CPT/HCPCS: 36415; 71045; 80048; 80053; 80061; 81000; 82330; 82607; 82728; 82962; 83036; 83540; 83550; 83605; 83690; 83735; 83880; 84443; 84484; 85007; 85025; 85027; 87040; 87081; 87086; 93005; 93306; 96361; 96365; 96375; 96376; 99285; C1751; G0378; J1940; J2405; J2543; J3475

== ENCOUNTER 2024-05-28 08:37 | Inpatient (IN) | payer OTHER ==
[~2024-05-28] VITALS: Ht 174 cm; Wt 129.3 kg
[2024-05-28 08:37] VITALS: BP_SYST 134; PULSE 81; RESP 19; TEMP 97.5; O2SAT 97
[~2024-05-28 08:37] MED LIST changes: +AMIO200T66 PO; +AMOX-423 PO; +OMEP-455 PO
[2024-05-28] MEDS: NACL 0.9% 1,000 ML IV ONE (09:00)
[2024-05-28 09:48] LABS: BASOPHILS % (AUTO) 0.5 % (0.0-2.0); EOSINOPHILS # (AUTO) 0.9 K/uL (0.0-0.4); EOSINOPHILS % (AUTO) 12.8 % (0.0-4.0); HEMATOCRIT 33.5 % (36-54); HEMOGLOBIN 10.7 g/dL (14.0-18.0); LYMPHOCYTES # (AUTO) 2.1 K/uL (1.0-5.5); LYMPHOCYTES % (AUTO) 28.4 % (20.5-51.5); MEAN CORPUSCULAR HEMOGLOBIN 24 pg (27-31); MEAN CORPUSCULAR HGB CONC 32 % (32-36); MEAN CORPUSCULAR VOLUME 76 fL (79.0-98.0); MONOCYTES # (AUTO) 0.9 K/uL (0.0-1.0); MONOCYTES % (AUTO) 11.7 % (1.7-9.3); NEUTROPHILS # (AUTO) 3.4 K/uL (1.8-7.7); NEUTROPHILS % (AUTO) 46.6 % (40.0-70.0); PLATELET COUNT (AUTO) 311 K/uL (130-430); RED BLOOD CELL COUNT(AUTO) 4.41 MIL/uL (4.2-6.2); RED CELL DISTRIBUTION WIDTH 22.5 % (9.0-15.0); WHITE BLOOD COUNT (AUTO) 7.3 K/uL (4.8-10.8)
[2024-05-28 10:01] LABS: ALANINE AMINOTRANSFERASE 150 U/L (12-78); ALBUMIN 2.4 g/dL (3.4-4.8); ANION GAP 8 (5-15); ASPARTATE AMINOTRANSFERASE 185 U/L (10-37); BILIRUBIN,DIRECT 0.3 mg/dL (0.0-0.3); CALCIUM 7.8 mg/dL (8.4-11.0); CARBON DIOXIDE 26 mmol/L (23-29); CHLORIDE 107 mmol/L (98-107); CREATININE 1.98 mg/dL (0.55-1.30); GLUCOSE 67 mg/dL (74-106); POTASSIUM 3.9 mmol/L (3.5-5.1); SODIUM SERUM 141 mmol/L (136-145); TOTAL BILIRUBIN 0.7 mg/dL (0.0-1.0); TOTAL PROTEIN, SERUM 6.6 g/dL (6.4-8.3); UREA NITROGEN, BLOOD 27 mg/dL (8-21)
[2024-05-28 10:11] LABS: PROTHROMBIN TIME 35.4 SECS (9.5-12.5)
[2024-05-28 10:12] LABS: INR 3.6 (0.80-1.20)
[2024-05-28] MEDS ORDERED: AMIO200T68 PO (16:18)
[2024-05-28] MEDS ORDERED: ATOR20TA64 PO (16:18)
[2024-05-28] MEDS ORDERED: ALLO100T PO (16:18)
[2024-05-28] MEDS ORDERED: ZINC100T2 PO (16:18)
[2024-05-28] MEDS ORDERED: [UNRECOGNIZED DRUG - CODE] (16:18)
[2024-05-28] MEDS ORDERED: FURO-150 PO (16:18)
[2024-05-28] MEDS ORDERED: ASCO500T20 PO (16:18)
[2024-05-28] MEDS ORDERED: OMEP20CA15 PO (16:18)
[2024-05-28 17:09] VITALS: BP_SYST 96; PULSE 71; RESP 18; TEMP 98.1; O2SAT 100
[2024-05-28 17:11] VITALS: BP_SYST 96; PULSE 67; RESP 18; TEMP 98.1
[2024-05-28 17:32] VITALS: O2SAT 100
[2024-05-28 20:00] VITALS: BP_SYST 114; PULSE 70; RESP 18; TEMP 97.6; O2SAT 100
[2024-05-29 01:43] VITALS: BP_SYST 97; PULSE 61; RESP 19; TEMP 97.6; O2SAT 100
[2024-05-29 06:32] LABS: BILIRUBIN,URINE NEGATIVE (NEGATIVE); BLOOD, URINE 2+ (NEGATIVE); CLARITY/URINE SL CLOUDY (CLEAR); COLOR,URINE YELLOW (YELLOW); GLUCOSE,URINE NEGATIVE (NEGATIVE); KETONES,URINE NEGATIVE (NEGATIVE); LEUKOCYTE ESTERASE ,URINE 3+ (NEGATIVE); NITRITE, URINE POSITIVE (NEGATIVE); PH,URINE 8.5 (5.0-8.0); PROTEIN URINE TRACE (NEGATIVE); UROBILINOGEN,URINE 0.2 (0.2-1.0)
[2024-05-29 06:42] LABS: BACTERIA,URINE MANY /HPF (None Seen); WBC,URINE 50-80 /HPF (0-3)
[2024-05-29 08:00] VITALS: BP_SYST 100; PULSE 66; RESP 16; TEMP 97.5; O2SAT 100
[2024-05-29] MEDS ORDERED: ONDANSETRON HCL 4 MG/2 ML VIAL IVP PRN (11:30)
[2024-05-29] MEDS ORDERED: LORazepam 2 MG/ML VIAL IVP PRN (11:30)
[2024-05-29] MEDS ORDERED: ACETAMINOPHEN 325 MG TABLET PO PRN ×2 (11:30→11:45)
[2024-05-29] MEDS ORDERED: HYDROcodone/ACETAMIN 10-325 MG TAB PO PRN (11:30)
[2024-05-29] MEDS ORDERED: NALOXONE HCL 0.4 MG/ML AMP (NARCAN) IVP PRN ×2 (11:30)
[2024-05-29] MEDS ORDERED: HYDROcodone/ACETAMIN 5-325 MG TAB (NORCO/ VICODIN) PO PRN (11:30)
[2024-05-29] MEDS ORDERED: OMEPRAZOLE Non-Formulary 20 MG CAPSULE.DR PO SCH (11:30)
[2024-05-29 12:15] LABS: ANION GAP 6 (5-15); CALCIUM 7.6 mg/dL (8.4-11.0); CARBON DIOXIDE 25 mmol/L (23-29); CHLORIDE 112 mmol/L (98-107); CREATININE 1.78 mg/dL (0.55-1.30); GLUCOSE 114 mg/dL (74-106); POTASSIUM 3.6 mmol/L (3.5-5.1); SODIUM SERUM 143 mmol/L (136-145); UREA NITROGEN, BLOOD 24 mg/dL (8-21)
[2024-05-29 12:16] LABS: BASOPHILS % (AUTO) 0.7 % (0.0-2.0); EOSINOPHILS # (AUTO) 1.2 K/uL (0.0-0.4); EOSINOPHILS % (AUTO) 18.7 % (0.0-4.0); HEMATOCRIT 32.8 % (36-54); HEMOGLOBIN 10.2 g/dL (14.0-18.0); LYMPHOCYTES # (AUTO) 1.7 K/uL (1.0-5.5); LYMPHOCYTES % (AUTO) 26.6 % (20.5-51.5); MEAN CORPUSCULAR HEMOGLOBIN 24 pg (27-31); MEAN CORPUSCULAR HGB CONC 31 % (32-36); MEAN CORPUSCULAR VOLUME 76 fL (79.0-98.0); MONOCYTES # (AUTO) 0.6 K/uL (0.0-1.0); MONOCYTES % (AUTO) 8.6 % (1.7-9.3); NEUTROPHILS # (AUTO) 2.9 K/uL (1.8-7.7); NEUTROPHILS % (AUTO) 45.4 % (40.0-70.0); PLATELET COUNT (AUTO) 325 K/uL (130-430); RED BLOOD CELL COUNT(AUTO) 4.33 MIL/uL (4.2-6.2); RED CELL DISTRIBUTION WIDTH 22.3 % (9.0-15.0); WHITE BLOOD COUNT (AUTO) 6.5 K/uL (4.8-10.8)
[2024-05-29] MEDS: cefTRIAXone 1 GM IVPB PREMIX 50 ML IV SCH (13:04)
[2024-05-29] MEDS: ALLOPURINOL 100 MG TABLET (ZYLOPRIM) PO ONE (13:05)
[2024-05-29] MEDS: ASCORBIC ACID 500 MG TABLET PO ONE (13:05)
[2024-05-29] MEDS: AMIODARONE HCL 200 MG TABLET PO ONE (13:05)
[2024-05-29] MEDS: FUROSEMIDE 20 MG TABLET PO ONE (13:05)
[2024-05-29] MEDS: DILTIAZEM HCL 120 MG CAP.SR.24H PO ONE (13:06)
[2024-05-29] MEDS: PANTOPRAZOLE SODIUM 40 MG TAB PO ONE (13:06)
[2024-05-29] MEDS: NORMAL SALINE 5 ML DISP.SYRIN IVF SCH (13:06)
[2024-05-29] MEDS: ATORVASTATIN 20 MG TABLET PO ONE (13:06)
[2024-05-29 14:23] VITALS: BP_SYST 104; PULSE 65; RESP 16; TEMP 98; O2SAT 100
[2024-05-29 16:00] VITALS: BP_SYST 119; PULSE 70; RESP 16; TEMP 97.9; O2SAT 98
[2024-05-29 20:00] VITALS: BP_SYST 97; PULSE 62; RESP 18; TEMP 97; O2SAT 100
[2024-05-29] MEDS: POTASSIUM CHLORIDE 20 MEQ TABLET.ER PO SCH (21:43)
[2024-05-29] MEDS: NACL 0.9% 1,000 ML IV ONE (22:41)
[2024-05-30] VITALS: BP_SYST 105; PULSE 68; RESP 18; TEMP 97.2; O2SAT 98
[2024-05-30 08:01] LABS: BASOPHILS # (AUTO) 0.1 K/uL (0.0-0.2); BASOPHILS % (AUTO) 0.9 % (0.0-2.0); EOSINOPHILS # (AUTO) 1.1 K/uL (0.0-0.4); EOSINOPHILS % (AUTO) 19.3 % (0.0-4.0); HEMATOCRIT 31.7 % (36-54); HEMOGLOBIN 9.9 g/dL (14.0-18.0); LYMPHOCYTES # (AUTO) 1.8 K/uL (1.0-5.5); LYMPHOCYTES % (AUTO) 29.9 % (20.5-51.5); MEAN CORPUSCULAR HEMOGLOBIN 23 pg (27-31); MEAN CORPUSCULAR HGB CONC 31 % (32-36); MEAN CORPUSCULAR VOLUME 75 fL (79.0-98.0); MONOCYTES # (AUTO) 0.7 K/uL (0.0-1.0); MONOCYTES % (AUTO) 11.4 % (1.7-9.3); NEUTROPHILS # (AUTO) 2.3 K/uL (1.8-7.7); NEUTROPHILS % (AUTO) 38.5 % (40.0-70.0); PLATELET COUNT (AUTO) 294 K/uL (130-430); RED BLOOD CELL COUNT(AUTO) 4.22 MIL/uL (4.2-6.2); RED CELL DISTRIBUTION WIDTH 22.2 % (9.0-15.0)
[2024-05-30 08:23] LABS: ALANINE AMINOTRANSFERASE 135 U/L (12-78); ALBUMIN 1.9 g/dL (3.4-4.8); ANION GAP 7 (5-15); ASPARTATE AMINOTRANSFERASE 166 U/L (10-37); CALCIUM 7.5 mg/dL (8.4-11.0); CARBON DIOXIDE 25 mmol/L (23-29); CHLORIDE 113 mmol/L (98-107); CREATININE 1.64 mg/dL (0.55-1.30); GLUCOSE 71 mg/dL (74-106); POTASSIUM 3.8 mmol/L (3.5-5.1); SODIUM SERUM 145 mmol/L (136-145); TOTAL BILIRUBIN 0.5 mg/dL (0.0-1.0); TOTAL PROTEIN, SERUM 5.5 g/dL (6.4-8.3); UREA NITROGEN, BLOOD 22 mg/dL (8-21)
[2024-05-30] MEDS: FUROSEMIDE 20 MG TABLET PO SCH (10:59)
[2024-05-30] MEDS: AMIODARONE HCL 200 MG TABLET PO SCH (11:00)
[2024-05-30] MEDS: ALLOPURINOL 100 MG TABLET (ZYLOPRIM) PO SCH (11:00)
[2024-05-30] MEDS: ASCORBIC ACID 500 MG TABLET PO SCH (11:00)
[2024-05-30] MEDS: ATORVASTATIN 20 MG TABLET PO SCH (11:01)
[2024-05-30] MEDS: DILTIAZEM HCL 120 MG CAP.SR.24H PO SCH (11:01)
[2024-05-30] MEDS: PANTOPRAZOLE SODIUM 40 MG TAB PO SCH (11:02)
[2024-05-30 12:52] VITALS: BP_SYST 97; PULSE 61; RESP 16; TEMP 97.9; O2SAT 97
[2024-05-30 15:10] LABS: ALBUMIN 1.8 g/dL (3.4-4.8); BILIRUBIN,DIRECT 0.2 mg/dL (0.0-0.3); TOTAL BILIRUBIN 0.4 mg/dL (0.0-1.0); TOTAL PROTEIN, SERUM 5.7 g/dL (6.4-8.3)
[2024-05-30] MEDS ORDERED: SULF1TAB48 PO (16:33)
[2024-05-30 17:14] VITALS: BP_SYST 95; PULSE 60; RESP 17; TEMP 97.9; O2SAT 100
[2024-05-30 17:43] VITALS: BP_SYST 111; PULSE 61; RESP 18; TEMP 98.5; O2SAT 100
[2024-05-30 20:00] VITALS: BP_SYST 102; PULSE 58; PULSE 88; RESP 16; TEMP 98.2; O2SAT 99
[2024-05-31 09:06] LABS: HEPATITIS B CORE AB, TOTAL Negative (Negative); HEPATITIS B SURFACE AG Negative (Negative); HEPATITIS C VIRUS AB Non Reactive (Non Reactive)
== END 2024-05-30 23:58 | disposition short-term general hospital (02) | DRG 689 ==
LOC: SED 08:37 → STU 13:30
PROVIDERS: ADMIT Preventive Medicine Preventive Medicine/Occupational Environmental Medicine; ATTEND Preventive Medicine Preventive Medicine/Occupational Environmental Medicine
DX: N39.0 Urinary tract infection, site not specified (principal); N17.0 Acute kidney failure with tubular necrosis; D68.59 Other primary thrombophilia; Z68.41 Body mass index [BMI] 40.0-44.9, adult; I48.91 Unspecified atrial fibrillation; E78.5 Hyperlipidemia, unspecified; I10 Essential (primary) hypertension; I25.10 Atherosclerotic heart disease of native coronary artery without angina pectoris; K21.9 Gastro-esophageal reflux disease without esophagitis; Z20.822 Contact with and (suspected) exposure to COVID-19; B96.4 Proteus (mirabilis) (morganii) as the cause of diseases classified elsewhere; D64.9 Anemia, unspecified; M10.9 Gout, unspecified; E66.9 Obesity, unspecified; E83.51 Hypocalcemia; R74.01 Elevation of levels of liver transaminase levels; Z86.73 Personal history of transient ischemic attack (TIA), and cerebral infarction without residual deficits; Z79.899 Other long term (current) drug therapy; Z88.8 Allergy status to other drugs, medicaments and biological substances
CPT/HCPCS: 36415; 71045; 71250-TC; 80048; 80053; 80076; 81000; 81001; 81015; 83605; 85025; 85610; 86704; 86706; 86803; 87040; 87086; 87186; 87340; 93005; 93306; 99285; G0378; J0696; J7030; J7050